=== PATIENT | male | born 1975 | race Caucasian/White ===

== ENCOUNTER 2017-01-26 17:21 | Emergency (ER) | payer MEDICAID ==
[2017-01-26] MEDS ORDERED: LIDOCAINE VISCOUS 2% 15 ML UDC MM STA (17:39)
[2017-01-26] MEDS ORDERED: MAG HYDROX/AL HYDROX/SIMETH 30 ML UDC PO STA (17:39)
--- NOTE | 2017-01-26 17:40 | ED Physician Documentation ---
History of Present Illness - Stated complaint Stated Complaint: ASOPHAGUS PRESSURE - Chief complaint Chief Complaint: Heent - History obtained from History obtained from: Patient - History of Present Illness Timing: Yesterday (Gentleman status post gastric bypass has had a sensation of a retained pill in his midesophagus since yesterday. He is taking clindamycin for a leg infection. It is worse when supine he is feeling like he has to burp a lot but he is managing his secretions. The pain has no radiation and he is not short of breath.) Review of Systems Constitutional: denies: Fever, Chills Nose: denies: Rhinorrhea / runny nose, Congestion Cardiac: denies: Pedal edema, Calf pain Respiratory: denies: Dyspnea, Hemoptysis PD PAST MEDICAL HISTORY - Past Medical History Cardiovascular: Hypertension Respiratory: Sleep apnea, CPAP use Neuro: None Endocrine/Autoimmune: Other GI: GERD : None HEENT: None Psych: None Musculoskeletal: None Derm: None - Past Surgical History Past Surgical History: Yes General: Gastric surgery, Other - Present Medications Home Medications: Ambulatory Orders Medication Instructions Recorded Confirmed Propranolol [Inderal] 20 mg PO TID 04/17/13 03/21/16 Losartan [Cozaar] 50 mg PO BID 09/07/13 03/21/16 Allopurinol [Zyloprim] 100 mg PO BID 04/15/14 03/21/16 Aspirin 81 mg PO DAILY 03/21/16 03/21/16 Cephalexin [Keflex] 500 mg PO QID #28 capsule 03/21/16 Doxycycline Hyclate 100 mg PO BID #14 tablet 03/21/16 Calcium Carbonate/Vitamin D3 1 each PO 03/24/16 [Calcium 500 + Vit D Caplet] Clindamycin HCl 300 mg PO Q6HR 10 Days 03/24/16 Cyanocobalamin (Vitamin B-12) 1,000 mcg PO 03/24/16 [Vitamin B-12] Multivitamin [Multivitamins] 1 each PO 03/24/16 Potassium Chloride 10 meq PO 03/24/16 - Allergies Allergies/Adverse Reactions: Allergies Allergy/AdvReac Type Severity Reaction Status Date / Time Sulfa (Sulfonamide Allergy Unknown unknown Verified 03/24/16 20:41 Antibiotics) - Social History Does the pt smoke?: No Smoking Status: Never smoker Does the pt drink ETOH?: No Does the pt have substance abuse?: No - Immunizations Immunizations are current?: No Immunizations: TDAP >10years/unknown - POLST Patient has POLST: No PD ED PE NORMAL - Vitals Vital signs reviewed: Yes - General General: Alert and oriented X 3, No acute distress - HEENT HEENT: Pharynx benign - Cardiac Cardiac: RRR, No murmur - Respiratory Respiratory: No respiratory distress, Clear bilaterally - Abdomen Abdomen: Non tender - Extremities Extremities: No edema, No calf tenderness / cord - Neuro Neuro: Alert and oriented X 3, Normal speech - Psych Psych: Normal mood, Normal affect Results - Vitals Vitals: Vital Signs - 24 hr 01/26/17 01/26/17 17:26 18:14 Temperature 36.5 C 36.4 C L Heart Rate 90 63 Respiratory 18 15 Rate Blood Pressure 153/107 H 133/82 H O2 Saturation 98 100 Oxygen O2 Source Room air - EKG (time done) 1750 Rate: Rate (enter#) (71) Rhythm: NSR [place]: Normal Intervals: Normal MS QRS: Low voltage Ischemia: Normal ST segments Computer interpretation: Agree with computer - Labs Labs: Laboratory Tests 01/26/17 01/26/17 01/26/17 17:50 17:50 17:50 WBC 4.7 L RBC 4.33 L Hgb 12.6 L Hct 38.0 L MCV 87.7 MCH 29.1 MCHC 33.2 RDW 14.0 Plt Count 108 L MPV 9.0 Manual Slide Review Indicated Sodium 139 Potassium 4.1 Chloride 105 Carbon Dioxide 27 Anion Gap 7.0 BUN 12 Creatinine 0.7 Estimated GFR (MDRD) 123 Glucose 93 Calcium 8.6 Total Bilirubin 1.1 H AST 36 ALT 39 Alkaline Phosphatase 81 Troponin I < 0.04 Total Protein 7.0 Albumin 3.7 Globulin 3.3 Albumin/Globulin Ratio 1.1 Lipase 18 L - Rads (name of study) 2v chest Radiology: EMP read contemporaneously (Infintesimal right pleural effusion) PD MEDICAL DECISION MAKING - ED course ED course: He has probably esophageal trauma from a pill, however there is no evidence of significant illness/Boerhaave syndrome. He is swallowing and keeping things down just fine. Advised watchful waiting for a few days and then if it isn't better touching base with his bariatric clinic for consideration for upper endoscopy and to return if worse. Departure - Departure Disposition: 01 Home, Self Care Clinical Impression: Pill esophagitis Condition: Good Record reviewed to determine appropriate education?: Yes Instructions: Esophagitis Comments: Soft diet for a few days. Return if worse. If not better in the next couple of days touch base with the geriatric clinic at the [facility] for consideration of upper endoscopy. Your blood pressure was elevated today on check in to the emergency department. This does not mean that you have hypertension, it is a common phenomenon to check into the emergency department and have elevated blood pressure. I recommend that you see your primary care physician within the week to have it rechecked when you're feeling better.
[2017-01-26] MEDS ORDERED: MAG HYDROX/AL HYDROX/SIMETH 30 ML UDC ONE (17:50)
[2017-01-26] MEDS ORDERED: LIDOCAINE VISCOUS 2% 15 ML UDC MM ONE (17:50)
[2017-01-26 18:07] LABS: BASOPHILS % (AUTO) 0.8 %; EOSINOPHILS # (AUTO) 0.1 10^3/uL (0.0-0.7); HGB - HEMOGLOBIN 12.6 g/dL (14.0-18.0); LYMPHOCYTES # (AUTO) 2.2 10^3/uL (1.5-3.5); LYMPHOCYTES % (AUTO) 46.2 %; MEAN CORPUSCULAR HEMOGLOBIN 29.1 pg (27.0-31.0); MEAN CORPUSCULAR HGB CONC 33.2 g/dL (32.0-36.0); MEAN CORPUSCULAR VOLUME 87.7 fL (80.0-94.0); MONOCYTES # (AUTO) 0.3 10^3/uL (0.0-1.0); MONOCYTES % (AUTO) 7.3 %; NEUTROPHILS # (AUTO) 2.1 10^3/uL (1.5-6.6); NEUTROPHILS % (AUTO) 43.7 %; NUCLEATED RED BLOOD CELLS AUTO 0.1 /100WBC; RED BLOOD COUNT 4.33 10^6/uL (4.70-6.10); UNCORRECTED WHITE BLOOD COUNT 4.7 x10^3/uL; WHITE BLOOD COUNT 4.7 x10^3/uL (4.8-10.8)
[2017-01-26 18:14] VITALS: BP 133/82
--- NOTE | 2017-01-26 18:14 | XRAY Preliminary Report ---
Exam: XR Chest 2 View PA/LAT IMPRESSION: New very small pleural effusions. Otherwise unchanged. [facility] SITE ID: [id number]
--- NOTE | 2017-01-26 18:17 | XRAY Report ---
EXAM: CHEST RADIOGRAPHY EXAM DATE: 01/26/2017 06:01 PM. CLINICAL HISTORY: Chest pain. COMPARISON: None. TECHNIQUE: 2 views. FINDINGS: Lungs/Pleura: New mild blunting of the posterior costophrenic angles. No consolidative process. Kasia l lung volumes. No pneumothorax. Mediastinum: Heart and mediastinal contours are unremarkable. Other: None. IMPRESSION: New very small pleural effusions. Otherwise unchanged. [facility] Referring Provider Line: [phone] SITE ID: [id number]
[2017-01-26 18:20] LABS: ALBUMIN/GLOBULIN RATIO 1.1 (1.0-2.2); BILIRUBIN,TOTAL 1.1 mg/dL (0.2-1.0); CALCIUM 8.6 mg/dL (8.5-10.3); CREATININE 0.7 mg/dL (0.6-1.2); POTASSIUM 4.1 mmol/L (3.5-5.0)
[2017-01-26 18:51] LABS: PLATELET ESTIMATE, MANUAL DECREASED (<130,000) (NORMAL); PLATELET MORPHOLOGY NORMAL APPEARANCE (NORMAL)
[2017-01-26 18:52] LABS: WBC MORPHOLOGY (MULTIPLE) VARIANT LYMPHS 2+ (NORMAL)
== END 2017-01-26 18:43 | disposition home or self-care (01) ==
LOC: ED 17:21
DX: K20.8 Other esophagitis (principal); Z98.84 Bariatric surgery status; I10 Essential (primary) hypertension; G47.30 Sleep apnea, unspecified; K21.9 Gastro-esophageal reflux disease without esophagitis; Z79.82 Long term (current) use of aspirin
CPT/HCPCS: 36415; 71020; 80053; 83690; 84484; 85025; 93005; 93010; 99283; A9270

== ENCOUNTER 2017-02-02 15:03 | Emergency (ER) | payer MEDICAID ==
--- NOTE | 2017-02-02 18:22 | Ultrasound Preliminary Report ---
Exam: US Duplex Ext Veins Right IMPRESSION: No evidence for deep venous thrombosis. [facility] SITE ID: [id number]
--- NOTE | 2017-02-02 18:24 | Ultrasound Report ---
EXAM: RIGHT LOWER EXTREMITY VENOUS ULTRASOUND EXAM DATE: 02/02/2017 05:38 PM. CLINICAL HISTORY: Pain and swelling and erythema posterior calf. COMPARISON: None. TECHNIQUE: Real-time sonographic vascular imaging was performed by the airline security representative through the lower extremity utilizing both color-flow and Doppler spectral analysis. Multiple delivery representative static basia ges were saved for review. FINDINGS: Common Femoral Vein (CFV): Normal. CFV-GSV Junction: Normal. Profunda Femoral Vein (PFV): Normal. Femoral Vein (FV) Prox: Normal. Femoral Vein (FV) Mid: Normal. Femoral Vein (FV) Dist: Normal. Popliteal Vein: Normal. Posterior Tibial Veins: Limited visualization. Peroneal Veins: Nonvisualized. Other: Extensive subcutaneous edema in the calf. IMPRESSION: No evidence for deep venous thrombosis. [facility] Referring Provider Line: [phone] SITE ID: [id number]
[2017-02-02] MEDS ORDERED: ceFAZolin 1 GM VIAL IM STA (19:01)
--- NOTE | 2017-02-02 19:03 | ED Physician Documentation ---
History of Present Illness - Stated complaint Stated Complaint: RT LEG SWELLING/REDNESS - Chief complaint Chief Complaint: Wound - Additonal information Additional information: hx from pt very nice 41 male with lymphedema prior cellulitis and MRSA txed with clinda recent inc redness and swelling posterior R calf, has been on clinda for 10 d and not better no fever no streaking Review of Systems Constitutional: denies: Fever Cardiac: denies: Chest pain / pressure Respiratory: denies: Dyspnea Skin: reports: Rash Musculoskeletal: reports: Extremity pain, Extremity swelling PD PAST MEDICAL HISTORY - Past Medical History Past Medical History: Yes Cardiovascular: Hypertension Respiratory: Sleep apnea, CPAP use Neuro: None Endocrine/Autoimmune: Other GI: GERD : None HEENT: None Psych: None Musculoskeletal: None Derm: None - Past Surgical History Past Surgical History: Yes General: Gastric surgery, Other - Present Medications Home Medications: Ambulatory Orders Medication Instructions Recorded Confirmed Propranolol [Inderal] 20 mg PO BID 04/17/13 02/02/17 Losartan [Cozaar] 50 mg PO DAILY 09/07/13 02/02/17 Allopurinol [Zyloprim] 100 mg PO BID 04/15/14 02/02/17 Aspirin 81 mg PO DAILY 03/21/16 02/02/17 Calcium Carbonate/Vitamin D3 1 each PO DAILY 03/24/16 [Calcium 500 + Vit D Caplet] Clindamycin HCl 300 mg PO Q6HR 10 Days 03/24/16 02/02/17 Cyanocobalamin (Vitamin B-12) 1,500 mcg PO DAILY 03/24/16 02/02/17 [Vitamin B-12] Multivitamin [Multivitamins] 1 each PO DAILY 03/24/16 02/02/17 Potassium Chloride 10 meq PO DAILY 03/24/16 02/02/17 Cephalexin [Keflex] 500 mg PO Q6H #40 capsule 02/02/17 Venlafaxine [Effexor] 1 tab BID 02/02/17 02/02/17 - Allergies Allergies/Adverse Reactions: Allergies Allergy/AdvReac Type Severity Reaction Status Date / Time Sulfa (Sulfonamide Allergy Unknown unknown Verified 03/24/16 20:41 Antibiotics) - Social History Does the pt smoke?: No Smoking Status: Never smoker Does the pt drink ETOH?: No Does the pt have substance abuse?: No - Immunizations Immunizations are current?: No Immunizations: TDAP >10years/unknown - POLST Patient has POLST: No PD ED PE NORMAL - Vitals Vital signs reviewed: Yes - Cardiac Cardiac: RRR - Respiratory Respiratory: No respiratory distress, Clear bilaterally - Extremities Extremities: Other (RLE tenderness erythema inducartion to posterior R calf, no abscess no streaking, MSV intact) Results - Vitals Vitals: Vital Signs - 24 hr 02/02/17 02/02/17 15:06 18:27 Temperature 36.2 C L 36.6 C Heart Rate 70 69 Respiratory 18 18 Rate Blood Pressure 119/76 133/88 H O2 Saturation 100 100 Oxygen O2 Source Room air - Rads (name of study) doppler Radiology: See rad report (neg) Departure - Departure Disposition: 01 Home, Self Care Clinical Impression: Cellulitis Qualifiers: Site of cellulitis: extremity Site of cellulitis of extremity: lower extremity Laterality: right Qualified Code(s): L03.115 - Cellulitis of right lower limb Condition: Good Instructions: ED Infec Skin Cellulitis Follow-Up: Anisha Vega ARNP [Primary Care Provider] - Prescriptions: Cephalexin [Keflex] 500 mg PO Q6H #40 capsule Comments: The ultrasound was fine - no abscess and no blood clot Since the clindamycin is not working, I think it is reasonable to try another oral antibiotic. If you are not improving in the next 48 hr on the oral antibiotics, come back to the ER to see if you need to be admitted for IV antibiotics And also please have your PMD recheck your blood pressure - it was high today
[2017-02-02] MEDS ORDERED: ceFAZolin 1 GM VIAL ONE (19:14)
[2017-02-02] MEDS ORDERED: WATER FOR INJECTION,STERILE 10 ML ONE (19:15)
[2017-02-02 20:03] VITALS: BP 121/85
== END 2017-02-02 20:00 | disposition home or self-care (01) ==
LOC: ED 15:03
DX: L03.115 Cellulitis of right lower limb (principal); Z86.14 Personal history of Methicillin resistant Staphylococcus aureus infection; I10 Essential (primary) hypertension; Z79.82 Long term (current) use of aspirin
CPT/HCPCS: 96372; 99283

== ENCOUNTER 2017-02-07 00:52 | Emergency (ER) | payer MEDICAID ==
[2017-02-07] MEDS ORDERED: diphenhydrAMINE 25 MG CAPSULE PO STA (01:02)
[2017-02-07] MEDS ORDERED: SULFAMETH/TRIMETH DS 800/160 MG TABLET PO STA (01:02)
[2017-02-07] MEDS ORDERED: SULFAMETH/TRIMETH DS 800/160 MG TABLET PO ONE (01:13)
[2017-02-07] MEDS ORDERED: diphenhydrAMINE 25 MG CAPSULE PO ONE (01:13)
[2017-02-07 01:37] LABS: BASOPHILS % (AUTO) 0.5 %; EOSINOPHILS # (AUTO) 0.2 10^3/uL (0.0-0.7); EOSINOPHILS % (AUTO) 3.4 %; HCT - HEMATOCRIT 31.3 % (42.0-52.0); HGB - HEMOGLOBIN 10.8 g/dL (14.0-18.0); LYMPHOCYTES % (AUTO) 52.3 %; MEAN CORPUSCULAR HEMOGLOBIN 29.7 pg (27.0-31.0); MEAN CORPUSCULAR HGB CONC 34.4 g/dL (32.0-36.0); MEAN CORPUSCULAR VOLUME 86.4 fL (80.0-94.0); MEAN PLATELET VOLUME 8.7 fL (7.4-11.4); MONOCYTES # (AUTO) 0.4 10^3/uL (0.0-1.0); MONOCYTES % (AUTO) 7.7 %; NEUTROPHILS % (AUTO) 36.1 %; NUCLEATED RED BLOOD CELLS AUTO 0.1 /100WBC; RED BLOOD COUNT 3.63 10^6/uL (4.70-6.10); RED CELL DISTRIBUTION WIDTH 14.3 % (12.0-15.0); UNCORRECTED WHITE BLOOD COUNT 5.7 x10^3/uL; WHITE BLOOD COUNT 5.7 x10^3/uL (4.8-10.8)
[2017-02-07 01:39] LABS: BILIRUBIN,TOTAL 0.8 mg/dL (0.2-1.0); CALCIUM 8.2 mg/dL (8.5-10.3); CREATININE 0.8 mg/dL (0.6-1.2); TOTAL PROTEIN 6.9 g/dL (6.7-8.2)
--- NOTE | 2017-02-07 01:59 | ED Physician Documentation ---
PD HPI SKIN - Stated complaint Stated Complaint: RT LEG INFECTION - Chief complaint Chief Complaint: Ext Problem - History obtained from History obtained from: Patient, Family - History of Present Illness Timing - onset: Chronic Timing - details: Gradual onset, Still present Location: RLE Quality / character: Painful, Discolored Associated symptoms: No: Fever, Myalgias Similar symptoms before: Work up / diagnostics, Treatment, Follow up Recently seen: Emergency Dept - Additional information Additional information: Patient is a 41 year old male with a history of lymphedema who is presenting to the emergency department for cellulitis. Patient states that it has been going on for a while. he was treated with a course of clindamycin, and then most recently a course of keflex, but his symptoms had not really improved so he came for re-evaluation. Review of Systems Constitutional: denies: Fever, Chills Eyes: denies: Loss of vision, Decreased vision Ears: denies: Ear pain, Drainage/discharge Nose: denies: Rhinorrhea / runny nose, Congestion Throat: denies: Sore throat Cardiac: denies: Chest pain / pressure GI: denies: Nausea, Vomiting Skin: reports: Rash Musculoskeletal: reports: Extremity pain, Extremity swelling. denies: Neck pain , Back pain Neurologic: denies: Generalized weakness, Focal weakness, Numbness, Difficulty speaking Psychiatric: denies: Depressed Immunocompromised: denies: Immunocompromised PD PAST MEDICAL HISTORY - Past Medical History Cardiovascular: Hypertension Respiratory: Sleep apnea, CPAP use Neuro: None Endocrine/Autoimmune: Other GI: GERD : None HEENT: None Psych: None Musculoskeletal: None Derm: None - Past Surgical History Past Surgical History: Yes General: Gastric surgery, Other - Present Medications Home Medications: Ambulatory Orders Medication Instructions Recorded Confirmed Propranolol [Inderal] 20 mg PO BID 04/17/13 02/07/17 Losartan [Cozaar] 50 mg PO DAILY 09/07/13 02/07/17 Allopurinol [Zyloprim] 100 mg PO BID 04/15/14 02/07/17 Aspirin 81 mg PO DAILY 03/21/16 02/07/17 Calcium Carbonate/Vitamin D3 1 each PO DAILY 03/24/16 02/07/17 [Calcium 500 + Vit D Caplet] Cyanocobalamin (Vitamin B-12) 1,500 mcg PO DAILY 03/24/16 02/07/17 [Vitamin B-12] Multivitamin [Multivitamins] 1 each PO DAILY 03/24/16 02/07/17 Potassium Chloride 10 meq PO DAILY 03/24/16 02/07/17 Cephalexin [Keflex] 500 mg PO Q6H #40 capsule 02/02/17 02/07/17 Venlafaxine [Effexor] 1 tab BID 02/02/17 02/07/17 Sulfamethox/Trimeth 800/160 1 each PO BID #20 tablet 02/07/17 [Bactrim Ds 800/160] - Allergies Allergies/Adverse Reactions: Allergies Allergy/AdvReac Type Severity Reaction Status Date / Time Sulfa (Sulfonamide Allergy Unknown unknown Verified 03/24/16 20:41 Antibiotics) - Social History Does the pt smoke?: No Smoking Status: Never smoker Does the pt drink ETOH?: No Does the pt have substance abuse?: No - Immunizations Immunizations are current?: No Immunizations: TDAP >10years/unknown - POLST Patient has POLST: No PD ED PE NORMAL - Vitals Vital signs reviewed: Yes - General General: Alert and oriented X 3, No acute distress - HEENT HEENT: Atraumatic, PERRL - Neck Neck: Supple, no meningeal sign - Cardiac Cardiac: RRR, No murmur - Respiratory Respiratory: No respiratory distress, Clear bilaterally - Abdomen Abdomen: Soft - Neuro Neuro: Alert and oriented X 3, No motor deficit, No sensory deficit, Normal speech - Psych Psych: Normal mood, Normal affect PD ED PE EXPANDED - Extremities Extremities: Right ankle (redness and warmth of right distal lower extremity near the ankle), Pedal edema bilateral Results - Vitals Vitals: Vital Signs - 24 hr 02/07/17 02/07/17 01:00 02:18 Temperature 37.2 C Heart Rate 68 63 Respiratory 16 16 Rate Blood Pressure 149/85 H 136/80 H O2 Saturation 100 99 Oxygen O2 Source Room air - Labs Labs: Laboratory Tests 02/07/17 02/07/17 02/07/17 01:15 01:15 01:15 WBC 5.7 RBC 3.63 L Hgb 10.8 L Hct 31.3 L MCV 86.4 MCH 29.7 MCHC 34.4 RDW 14.3 Plt Count 135 MPV 8.7 Neut # 2.0 Lymph # 3.0 [place] # 0.4 Eos # 0.2 Baso # 0.0 Absolute Nucleated RBC 0.01 Nucleated RBCs 0.1 ESR 34 H Sodium 136 Potassium 4.0 Chloride 104 Carbon Dioxide 27 Anion Gap 5.0 L BUN 14 Creatinine 0.8 Estimated GFR (MDRD) 106 Glucose 102 H Calcium 8.2 L Total Bilirubin 0.8 AST 27 ALT 30 Alkaline Phosphatase 77 C-Reactive Protein 3.6 H Total Protein 6.9 Albumin 3.5 Globulin 3.4 Albumin/Globulin Ratio 1.0 Lipase 25 PD MEDICAL DECISION MAKING - ED course Complexity details: reviewed old records, reviewed results, re-evaluated patient , considered differential, d/w patient, d/w family ED course: Patient was seen and examined at bedside. patient's vital signs were within normal limits. labs were drawn, since the infection had been so persistent. Patient was treated with bactrim since he stated that his allergy was unknown as a child. Patient's tolerated the treatment well within any side effects. Patient required no further work up and was appropriate for trial of outpatient therapy. Departure - Departure Disposition: 01 Home, Self Care Clinical Impression: Cellulitis of leg Condition: Good Instructions: Cellulitis Dc Follow-Up: Anisha Vega ARNP [Primary Care Provider] - Within 3 Days Prescriptions: Sulfamethox/Trimeth 800/160 [Bactrim Ds 800/160] 1 each PO BID #20 tablet Comments: Your symptoms today are likely secondary to skin infection. we will try a course of bactrim since it has mrsa coverage. You should follow up with your pmd for re-evaluation within the next week. You can return to the emergency department at any time for new, worsening or uncontrollable symptoms. Discharge Date/Time: 02/07/17 02:19
[2017-02-07 02:19] VITALS: BP 136/80
== END 2017-02-07 02:19 | disposition home or self-care (01) ==
LOC: ED 00:52
DX: L03.115 Cellulitis of right lower limb (principal); I10 Essential (primary) hypertension; Z79.82 Long term (current) use of aspirin
CPT/HCPCS: 36415; 80053; 83690; 85025; 85651; 86140; 99283; A9270

== ENCOUNTER 2017-05-10 15:00 | Outpatient (CLI) | payer MEDICAID ==
--- NOTE | 2017-05-11 10:10 | Ultrasound Report ---
ULTRASOUND RIGHT GROIN: 05/10/2017 CLINICAL INDICATION: Suprapubic mass. TECHNIQUE: Real-time scanning was performed with sales representative church furniture static images obtained. FINDINGS: Ultrasound of the palpable abnormality identified by the patient was performed. No discre te solid or cystic mass is seen. Unremarkable subcutaneous fat is noted. IMPRESSION: NO EVIDENCE OF SONOGRAPHIC CORRELATE TO THE PALPABLE ABNORMALITY. JOB #: [id number] EXT JOB #:[id number]
== END 2017-05-10 15:01 | disposition home or self-care (01) ==
LOC: DI 15:00
PROVIDERS: ATTEND Surgery
DX: R19.09 Other intra-abdominal and pelvic swelling, mass and lump (principal)
CPT/HCPCS: 76882

== ENCOUNTER 2018-04-07 18:23 | Emergency (ER) | payer MEDICAID ==
[2018-04-07] MEDS ORDERED: SODIUM CHLORIDE 0.9% 1,000 ML IV ONE (20:16)
[2018-04-07] MEDS ORDERED: KETOROLAC 60 MG/2 ML VIAL IVP STA (20:16)
[2018-04-07 20:38] LABS: BASOPHILS % (AUTO) 0.5 %; EOSINOPHILS # (AUTO) 0.1 10^3/uL (0.0-0.7); EOSINOPHILS % (AUTO) 2.5 %; HGB - HEMOGLOBIN 14.2 g/dL (14.0-18.0); LYMPHOCYTES # (AUTO) 2.4 10^3/uL (1.5-3.5); LYMPHOCYTES % (AUTO) 39.5 %; MEAN CORPUSCULAR HEMOGLOBIN 30.5 pg (27.0-31.0); MEAN CORPUSCULAR HGB CONC 34.7 g/dL (32.0-36.0); MEAN CORPUSCULAR VOLUME 87.9 fL (80.0-94.0); MEAN PLATELET VOLUME 8.2 fL (7.4-11.4); MONOCYTES # (AUTO) 0.3 10^3/uL (0.0-1.0); MONOCYTES % (AUTO) 5.5 %; NEUTROPHILS # (AUTO) 3.2 10^3/uL (1.5-6.6); PLT - PLATELET COUNT 137 10^3/uL (130-450); RED BLOOD COUNT 4.65 10^6/uL (4.70-6.10); RED CELL DISTRIBUTION WIDTH 13.8 % (12.0-15.0); WHITE BLOOD COUNT 6.1 x10^3/uL (4.8-10.8)
[2018-04-07 20:55] LABS: ALBUMIN 3.7 g/dL (3.2-5.5); ALBUMIN/GLOBULIN RATIO 1.1 (1.0-2.2); BILIRUBIN,TOTAL 1.1 mg/dL (0.2-1.0); CALCIUM 8.7 mg/dL (8.5-10.3); CREATININE 0.7 mg/dL (0.6-1.2)
[2018-04-07] MEDS ORDERED: IOPAMIDOL-300 100 ML VIAL ONE (21:06)
[2018-04-07] MEDS ORDERED: IOPAMIDOL-300 100 ML VIAL IVP ONE (21:33)
--- NOTE | 2018-04-07 22:08 | ED Physician Documentation ---
History of Present Illness - Stated complaint Stated Complaint: MALE - Chief complaint Chief Complaint: General - History obtained from History obtained from: Patient - Additonal information Additional information: 42-year-old male presents the emergency department with periumbilical pain which started this morning. The patient denies any specific triggering factors. The patient is status post a Marce-en-Y gastric bypass 2 years ago and had a repair of a umbilical hernia at that time. Today, the patient noticed a bulging around his umbilicus which was associated with a sharp stabbing pain. Presently, the bulging has resolved but the patient has ongoing pain in his abdomen. The patient reports feeling nauseous but denies vomiting or diarrhea. No radiation of the pain. No triggering factors. No relieving factors. Symptoms are described as moderate Review of Systems Constitutional: denies: Fever, Chills Eyes: denies: Discharge Ears: denies: Ear pain Nose: denies: Congestion Throat: denies: Sore throat Cardiac: denies: Chest pain / pressure Respiratory: denies: Dyspnea GI: reports: Abdominal Pain, Nausea. denies: Vomiting, Diarrhea : denies: Dysuria, Hematuria Skin: denies: Laceration (s) Musculoskeletal: denies: Back pain Neurologic: denies: Head injury Immunocompromised: denies: Chemotherapy PD PAST MEDICAL HISTORY - Past Medical History Cardiovascular: Hypertension Respiratory: Sleep apnea, CPAP use Endocrine/Autoimmune: Other GI: GERD : None HEENT: None Psych: None Musculoskeletal: None Derm: None - Past Surgical History Past Surgical History: Yes General: Gastric surgery, Other - Present Medications Home Medications: Ambulatory Orders Medication Instructions Recorded Confirmed Propranolol [Inderal] 20 mg PO BID 04/17/13 02/07/17 Losartan [Cozaar] 50 mg PO DAILY 09/07/13 02/07/17 Allopurinol [Zyloprim] 100 mg PO BID 04/15/14 02/07/17 Aspirin 81 mg PO DAILY 03/21/16 02/07/17 Calcium Carbonate/Vitamin D3 1 each PO DAILY 03/24/16 02/07/17 [Calcium 500 + Vit D Caplet] Cyanocobalamin (Vitamin B-12) 1,500 mcg PO DAILY 03/24/16 02/07/17 [Vitamin B-12] Multivitamin [Multivitamins] 1 each PO DAILY 03/24/16 02/07/17 Potassium Chloride 10 meq PO DAILY 03/24/16 02/07/17 Cephalexin [Keflex] 500 mg PO Q6H #40 capsule 02/02/17 02/07/17 Venlafaxine [Effexor] 1 tab BID 02/02/17 02/07/17 Sulfamethox/Trimeth 800/160 1 each PO BID #20 tablet 02/07/17 [Bactrim Ds 800/160] - Allergies Allergies/Adverse Reactions: Allergies Allergy/AdvReac Type Severity Reaction Status Date / Time Sulfa (Sulfonamide Allergy Unknown unknown Verified 04/07/18 18:30 Antibiotics) - Social History Does the pt smoke?: No Smoking Status: Never smoker Does the pt drink ETOH?: No Does the pt have substance abuse?: No - Immunizations Immunizations are current?: No Immunizations: TDAP >10years/unknown - POLST Patient has POLST: No PD ED PE NORMAL - General General: Alert and oriented X 3, No acute distress, Well developed/nourished - HEENT HEENT: Atraumatic, PERRL, EOMI, Ears normal - Cardiac Cardiac: RRR, Strong equal pulses - Respiratory Respiratory: No respiratory distress, Clear bilaterally - Abdomen Abdomen: Soft, Non distended, Other (The patient has tenderness in the mid abdomen, there is no rebound or peritoneal signs. On examination I cannot appreciate an incarcerated hernia or hernia) - Derm Derm: Normal color - Extremities Extremities: No deformity - Neuro Neuro: Alert and oriented X 3, Normal speech - Psych Psych: Normal mood Results - Vitals Vitals: Vital Signs - 24 hr 04/07/18 04/07/18 04/07/18 18:27 20:42 22:27 Temperature 36.4 C L 36.6 C Heart Rate 62 62 62 Respiratory 16 16 16 Rate Blood Pressure 141/87 H 150/97 H 150/89 H O2 Saturation 100 100 99 Oxygen O2 Source Room air - Labs Labs: Laboratory Tests 04/07/18 04/07/18 20:33 20:33 WBC 6.1 RBC 4.65 L Hgb 14.2 Hct 40.9 L MCV 87.9 MCH 30.5 MCHC 34.7 RDW 13.8 Plt Count 137 MPV 8.2 Neut # (Auto) 3.2 Lymph # (Auto) 2.4 [place] # (Auto) 0.3 Eos # (Auto) 0.1 Baso # (Auto) 0.0 Absolute Nucleated RBC 0.00 Nucleated RBC % 0.1 Sodium 138 Potassium 3.9 Chloride 104 Carbon Dioxide 28 Anion Gap 6.0 BUN 12 Creatinine 0.7 Estimated GFR (MDRD) 123 Glucose 130 H Calcium 8.7 Total Bilirubin 1.1 H AST 22 ALT 22 Alkaline Phosphatase 54 Total Protein 7.0 Albumin 3.7 Globulin 3.3 Albumin/Globulin Ratio 1.1 Lipase 31 - Rads (name of study) CT abdomen pelvis Radiology: Final report received (IMPRESSION: 1. Likely mild inflammation of a fat-containing supraumbilical hernia with a wide neck. No bowel containing hernia.2. Moderate splenomegaly with mild hepatomegaly versus normal variant Can's lobe, of uncertain etiology and clinical significance.3. Postsurgical changes of the gastroesophageal junction with small to ) PD MEDICAL DECISION MAKING - ED course ED course: On reevaluation the patient resting comfortably and his symptoms have completely resolved. On physical exam there is no evidence of an incarcerated hernia. The CT scan does show evidence of a fat-containing hernia. I discussed with the patient the findings on the CT scan including the incidental findings. I advised follow-up with surgery as an outpatient for further management of the hernia. The patient will follow up with primary care for the incidental findings. The patient appears appropriate for ongoing outpatient management. I discussed warning signs and recommended returning to the emergency department immediately for any worsening or any concerns. - Sepsis Event Vital Signs: Vital Signs - 24 hr 04/07/18 04/07/18 04/07/18 18:27 20:42 22:27 Temperature 36.4 C L 36.6 C Heart Rate 62 62 62 Respiratory 16 16 16 Rate Blood Pressure 141/87 H 150/97 H 150/89 H O2 Saturation 100 100 99 Oxygen O2 Source Room air Departure - Departure Disposition: 01 Home, Self Care Clinical Impression: Acute abdominal pain, Hernia of abdominal wall, Hiatal hernia, Enlarged liver, Enlargement, spleen Condition: Good Instructions: Hernia, Hiatal Hernia Follow-Up: Jac Rodriges MD [Provider Admit Priv/Credential] - (Call to schedule a follow up appointment) Anisha Vega ARNP [Primary Care Provider] - Within 1 week Comments: Please return to the ER for worsening symptoms or any concerns
--- NOTE | 2018-04-07 22:20 | CT Report ---
Procedure Date: 04/07/2018 Accession Number: [id number] / [id number] Procedure: CT - Abdomen/Pelvis W/ CPT Code: FULL RESULT: EXAM: CT ABDOMEN AND PELVIS EXAM DATE: 04/07/2018 09:41 PM. CLINICAL HISTORY: Midabdominal pain. COMPARISONS: Chest radiograph 12/17/2007 and 01/26/2017. TECHNIQUE: Routine helical CT imaging was performed through the abdomen and pelvis. IV contrast: ISOVUE 300 100mL. Enteric contrast: No. Reconstructions: Coronal and sagittal. In accordance with CT protocol optimization, one or more of the following dose reduction techniques were utilized for this exam: automated exposure control, adjustment of mA and/or KV based on patient size, or use of iterative reconstructive technique. FINDINGS: Lung Bases: Small to moderate hiatal hernia with postsurgical changes at the gastroesophageal junction. Liver: Elongated right hepatic lobe with foreshortened left hepatic lobe, possibly normal variant Can's lobe. No suspicious focal lesion. Gallbladder/Bile Ducts: Unremarkable. Spleen: Enlarged measuring 18.8 cm in craniocaudal dimension. No focal lesion. Pancreas: Normal. Adrenal Glands: Normal. Kidneys: No hydronephrosis or mass. Nonobstructing right upper pole calculus measures 8 mm. Nonobstructing left lower pole calculus measures 3 mm. Peritoneal Cavity/Bowel: No free fluid or free air. No evidence of bowel obstruction or inflammation. Postsurgical changes at the gastroesophageal junction with small to moderate hiatal hernia as above. Small bowel anastomosis in the midabdomen. Appendix is normal. Stool burden within normal limits. No abnormally enlarged lymph nodes. Pelvic Organs: Urinary bladder is near completely decompressed but unremarkable. Prostate and seminal vesicles are within normal limits. Vasculature: No abdominal aortic aneurysm. No appreciable calcific atherosclerosis. Portal vein is patent. Bones: No significant abnormality. Other: Fat-containing right supraumbilical hernia. Neck measures 25 mm transversely (3/52). Mild wall thickening of the included fats which measures 63 x 35 mm transversely (3/54). No bowel containing hernia. IMPRESSION: 1. Likely mild inflammation of a fat-containing supraumbilical hernia with a wide neck. No bowel containing hernia. 2. Moderate splenomegaly with mild hepatomegaly versus normal variant Can's lobe, of uncertain etiology and clinical significance. 3. Postsurgical changes of the gastroesophageal junction with small to moderate hiatal hernia. 4. Bilateral nonobstructing nephrolithiasis. RADIA
[2018-04-07 22:28] VITALS: BP 150/89
== END 2018-04-07 22:33 | disposition home or self-care (01) ==
LOC: ED 18:23
DX: K43.9 Ventral hernia without obstruction or gangrene (principal); K44.9 Diaphragmatic hernia without obstruction or gangrene; R16.0 Hepatomegaly, not elsewhere classified; R16.1 Splenomegaly, not elsewhere classified; I10 Essential (primary) hypertension; Z79.82 Long term (current) use of aspirin
CPT/HCPCS: 36415; 74177; 80053; 83690; 85025; 96361; 96374; 99283; 99284; Q9967

== ENCOUNTER 2018-05-13 12:17 | Outpatient (CLI) | payer MEDICAID ==
[2018-05-13 13:04] LABS: BASOPHILS % (AUTO) 0.5 %; EOSINOPHILS # (AUTO) 0.2 10^3/uL (0.0-0.7); EOSINOPHILS % (AUTO) 3.1 %; LYMPHOCYTES # (AUTO) 2.3 10^3/uL (1.5-3.5); MEAN CORPUSCULAR HEMOGLOBIN 30.7 pg (27.0-31.0); MEAN CORPUSCULAR VOLUME 87.7 fL (80.0-94.0); MEAN PLATELET VOLUME 8.2 fL (7.4-11.4); MONOCYTES # (AUTO) 0.4 10^3/uL (0.0-1.0); MONOCYTES % (AUTO) 6.8 %; NEUTROPHILS # (AUTO) 3.1 10^3/uL (1.5-6.6); NEUTROPHILS % (AUTO) 51.6 %; PLT - PLATELET COUNT 131 10^3/uL (130-450); RED BLOOD COUNT 4.56 10^6/uL (4.70-6.10); WHITE BLOOD COUNT 6.1 x10^3/uL (4.8-10.8)
[2018-05-13 13:18] LABS: ALBUMIN/GLOBULIN RATIO 1.4 (1.0-2.2); BILIRUBIN,TOTAL 0.7 mg/dL (0.2-1.0); CALCIUM 8.6 mg/dL (8.5-10.3); CREATININE 0.7 mg/dL (0.6-1.2); TOTAL PROTEIN 6.9 g/dL (6.7-8.2)
--- NOTE | 2018-05-13 13:32 | Ultrasound Report ---
Reason: ENLARGED LIVER Procedure Date: 05/13/2018 Accession Number: [id number] / [id number] Procedure: US - Abdomen Limited CPT Code: FULL RESULT: EXAM: ABDOMEN ULTRASOUND LIMITED, RUQ EXAM DATE: 05/13/2018 12:43 PM. CLINICAL HISTORY: ENLARGED LIVER. COMPARISON: None. TECHNIQUE: Real-time scanning was performed with static images obtained. FINDINGS: Liver: Normal in size and echotexture. Right lobe is 17.9 cm. Main portal vein flow: Hepatopetal. Gallbladder: no stones, wall thickening, or sonographic Munoz's sign. Biliary System: CBD measures 6 mm. No intrahepatic or extrahepatic ductal dilatation. Other: None. IMPRESSION: No acute sonographic abnormalities. No focal hepatic abnormalities. Mild craniocaudad hepatic enlargement, could reflect a Can's lobe. RADIA
[2018-05-13 13:48] LABS: HB2 TOTAL 14.6 g/dL; HEMOGLOBIN A1C 0.41 g/dL; HEMOGLOBIN A1C % 4.7 % (4.6-6.2)
== END 2018-05-13 12:18 | disposition home or self-care (01) ==
LOC: DI 12:17
PROVIDERS: ATTEND Nurse Practitioner Family
DX: R16.0 Hepatomegaly, not elsewhere classified (principal); K42.9 Umbilical hernia without obstruction or gangrene; I10 Essential (primary) hypertension; R73.9 Hyperglycemia, unspecified
CPT/HCPCS: 36415; 76705; 80050; 83036; 87640

== ENCOUNTER 2018-05-23 08:46 | Day surgery (SDC) | payer MEDICAID ==
[2018-05-23] MEDS ORDERED: BUPIVACAINE 0.5% PF 30 ML VIAL ONE (08:55)
[2018-05-23] MEDS ORDERED: ceFAZolin 1 GM VIAL ONE (09:11)
[2018-05-23] MEDS ORDERED: ceFAZolin 2 GM/50 ML 2 GM/50 ML BAG IV ONE (09:11)
[2018-05-23] MEDS ORDERED: LACTATED RINGERS 1,000 ML IV ONE (09:22)
--- NOTE | 2018-05-23 09:23 | ANESTHESIA ---
Pre-Anesthesia VS, & Labs - Diagnosis Supraumbilical incisional hernia - Procedure Supraumbilical incisional hernia repair Vital Signs: Temp Pulse Resp BP Pulse Ox 36.3 C L 66 18 132/85 H 99 05/23/18 09:06 05/23/18 09:06 05/23/18 09:06 05/23/18 09:06 05/23/18 09:06 Vital Signs - 8 hr 05/23/18 09:06 Temperature 36.3 C L Heart Rate 66 Respiratory 18 Rate Blood Pressure 132/85 H O2 Saturation 99 Height 5 ft 6 in Weight (kg) 150.2 kg Body Mass Index 50.4 Height 5 ft 6 in Weight (kg) 150.2 kg Body Mass Index 50.4 - NPO >8 hours - Lab Results Lab results reviewed: Yes Home Medications and Allergies Home Medications: Ambulatory Orders Medication Instructions Recorded Confirmed Propranolol [Inderal] 20 mg PO BID 04/17/13 02/07/17 Losartan [Cozaar] 50 mg PO DAILY 09/07/13 02/07/17 Allopurinol [Zyloprim] 100 mg PO BID 04/15/14 02/07/17 Aspirin 81 mg PO DAILY 03/21/16 02/07/17 Calcium Carbonate/Vitamin D3 1 each PO DAILY 03/24/16 02/07/17 [Calcium 500 + Vit D Caplet] Cyanocobalamin (Vitamin B-12) 1,500 mcg PO DAILY 03/24/16 02/07/17 [Vitamin B-12] Multivitamin [Multivitamins] 1 each PO DAILY 03/24/16 02/07/17 Potassium Chloride 10 meq PO DAILY 03/24/16 02/07/17 Venlafaxine [Effexor] 1 tab BID 02/02/17 02/07/17 Propranolol [Inderal] 20 mg PO BID 04/17/13 Losartan [Cozaar] 50 mg PO DAILY 09/07/13 Allopurinol [Zyloprim] 100 mg PO BID 04/15/14 Aspirin 81 mg PO DAILY 03/21/16 Calcium Carbonate/Vitamin D3 [Calcium 500 + Vit D Caplet] 1 each PO DAILY 03/24/16 Cyanocobalamin (Vitamin B-12) [Vitamin B-12] 1,500 mcg PO DAILY 03/24/16 Multivitamin [Multivitamins] 1 each PO DAILY 03/24/16 Potassium Chloride 10 meq PO DAILY 03/24/16 Venlafaxine [Effexor] 1 tab BID 02/02/17 Allergies/Adverse Reactions: Allergies Allergy/AdvReac Type Severity Reaction Status Date / Time Sulfa (Sulfonamide Allergy Unknown unknown Verified 04/07/18 18:30 Antibiotics) Anes History & Medical History - Anesthetic History Anesthesia Complications: reports: No previous complications Family history of Anesthesia Complications: Denies Family history of Malignant Hyperthermia: Denies - Medical History Cardiovascular: reports: Hypertension Pulmonary: reports: Sleep apnea, CPAP use Gastrointestinal: reports: GERD (Resolved with gastric bypass), Other (Super morbid obesity. BMI>50) Urinary: reports: None, Kidney stones (history of kidney stomes) Neuro: reports: None Musculoskeletal: reports: None Blood Disorders: reports: None Skin: reports: None Smoking Status: Never smoker Psychosocial: reports: Depression, Anxiety - Surgical History General: Gastric surgery (Marce en Y gastric bypass), Other (Umbilical hernia repair) Results - EKG Results EKG Comparison: Reviewed EKG (NSR) - Echo Results Echo Results: Report reviewed (Mild LVH, EF 60%) Exam General: Alert, Oriented x3, Cooperative, No acute distress Dental: Poor dentition Mouth Openin Fingerbreadth Neck Mobility: Normal Mallampati classification: II Thyromental Distance: 4-6 cm Respiratory: Lungs clear, Normal breath sounds, No respiratory distress, No accessory muscle use Cardiovascular: Regular rate, Normal S1, Normal S2, No murmurs Mental/Cognitive Status: Alert/Oriented X3, Normal for patient Cognitive Status: Within normal limits Plan Anesthesia Type: General Consent for Procedure(s) Verified and Reviewed: Yes Code Status: Attempt Resuscitation ASA classification: 3-Severe systemic disease Is this case an emergency?: No
[2018-05-23] MEDS ORDERED: LIDOCAINE-MPF 2% 5 ML VIAL IM ONE (10:00)
[2018-05-23] MEDS ORDERED: MIDAZOLAM 2 MG/2 ML VIAL IVP ONE (10:00)
[2018-05-23] MEDS ORDERED: KETOROLAC 30 MG/ML VIAL IVP ONE (10:00)
[2018-05-23] MEDS ORDERED: DEXAMETHASONE 4 MG/ML VIAL IVP ONE (10:00)
[2018-05-23] MEDS ORDERED: ONDANSETRON 4 MG/2 ML VIAL IVP ONE (10:00)
[2018-05-23] MEDS ORDERED: PROPOFOL 200 MG/20 ML VIAL IVP ONE (10:00)
[2018-05-23] MEDS ORDERED: fentaNYL 100 MCG/2 ML VIAL IVP ONE (10:00)
[2018-05-23] MEDS ORDERED: BUPIVACAINE 0.5% PF 30 ML VIAL INFIL ONE (10:17)
--- NOTE | 2018-05-23 11:38 | OPERATIVE REPORT ---
Operative Report - General Procedure Date: 05/23/18 Planned Procedure: Supraumbilical herniorrhaphy with mesh Pre-Op Diagnosis: Supraumbilical hernia Procedure Performed: Supraumbilical herniorrhaphy with mesh Post Op Diagnosis: Supraumbilical hernia with adherent omentum - Procedure Note Primary Surgeon: Jac Rodriges MD Anesthesia Provider: Dustin Braun CRNA Anesthesia Technique: General LMA, Local (30 mL 1/2% marcaine) IV Fluids (mL): 800 Estimated Blood Loss (mL): 10 Complications: None. - Other Other Information/Narrative: OPERATIVE DESCRIPTION/REPORT: After verbal and written informed consent was obtained detailing the risks of infection, bleeding requiring transfusion with its risks, nerve injury, and , and after I met with the patient confirming the surgery and the site of the surgery, the patient was brought to the operative suite and placed supine on the operating table. Great care was taken to avoid pressure points to prevent pressure necrosis or nerve injury. Monitoring devices were applied along with TEDs and pneumatic compressive stockings (to prevent DVT). The patient received preoperative antibiotics for surgical prophylaxis. Dustin Braun CRNA sedated and anesthetized the patient for the entire procedure. The patient was prepped and draped in the usual sterile manner. With the patient draped my initials were clearly visible. A "time in" then confirmed that the patient was identified with 3 identifiers (name, date and medical record number), the history and physical was in the chart, the signed consent confirming the procedure was in the chart, the patient was in the correct position, the aforementioned prophylactic measures were in place or given, we had the correct personnel and equipment to complete the procedure and that anesthesia, surgery a nd nursing were given an opportunity to express any concerns. With the agreement of everyone in the room, we proceeded with the operation. A transverse incision was made overlying the mass tracing the previous incision and dissection was carried down to the hernia sac using a combination of Metzenbaum scissors, scalpel, and mostly Bovie electrocautery. The sac was cleared of overlying adherent tissue, and the fascial defect was delineated. The fascia was cleared of any adherent tissue for a distance 1.5 cm from the defect. The sac was resected using a combination of Metzenbaum scissors and mostly Bovie electrocautery. The adhesions of the omentum to the sac were taken using Bovie elecctrocautery and the omentum reduced back into the abdomen. The defect was closed using 8 cm in diameter Ventralex ST Hernia Patch (Ref#[id number], Lot#[id number], and use by date 2020-01-31) sewing it in place using interrupted 2-0 and 0 PDS. The subcutaneous tissues were copiously irrigated, and then closed using an interrupted 2-0 Vicryl. Meticulous hemostasis was obtained using Bovie electrocautery. The skin incision was approximated with a running 4-0 Monocryl. At this point a time out was performed that confirmed that all the counts were correct, the procedure that was performed, the blood loss, the IV fluids administered, and the patients condition. Having tolerated the procedure well, the patient was subsequently extubated and taken to recovery room in good and stable condition.
[2018-05-23] MEDS ORDERED: oxyCOD/ACETAMIN 5 MG/325 MG TABLET PO ONE (11:54)
[2018-05-23 12:31] VITALS: BP 134/84
== END 2018-05-23 08:47 | disposition home or self-care (01) ==
LOC: SDS 08:46
PROVIDERS: ATTEND Surgery
PROC: 0WUF0JZ Supplement Abdominal Wall with Synthetic Substitute, Open Approach (ICD-10-PCS; principal; 2018-05-23 09:45)
DX: K43.2 Incisional hernia without obstruction or gangrene (principal); G47.30 Sleep apnea, unspecified; I10 Essential (primary) hypertension; E66.01 Morbid (severe) obesity due to excess calories; Z68.43 Body mass index [BMI] 50.0-59.9, adult
CPT/HCPCS: 49560; 49568; A9270; C1781; J0690; J7120

== ENCOUNTER 2018-09-06 03:28 | Emergency (ER) | payer MEDICAID ==
[2018-09-06 03:37] VITALS: BP 142/96
--- NOTE | 2018-09-06 03:51 | ED Physician Documentation ---
PD HPI HEENT - Stated complaint Stated Complaint: TOOTH ACHE - Chief complaint Chief Complaint: Heent - History obtained from History obtained from: Patient - History of Present Illness Timing - onset: How many months ago (1) Timing - details: Gradual onset, Waxing and waning Pain level now: 7 Location: Tooth Improves: Nothing Associated symptoms: No: Fever Recently seen: Not recently seen - Additional information Additional information: c/o right upper tooth pain, episodic x 1 month but worse and constant x past several days. has appointment in approximately 3 weeks with dentist but he is concerned it might be infected Review of Systems Constitutional: denies: Fever Throat: reports: Dental pain / toothache PD PAST MEDICAL HISTORY - Past Medical History Cardiovascular: Hypertension Respiratory: Sleep apnea, CPAP use Neuro: None Endocrine/Autoimmune: Other GI: GERD, Other : None, Kidney stones HEENT: None Psych: None Musculoskeletal: None Derm: None - Past Surgical History Past Surgical History: Yes General: Gastric surgery, Other - Present Medications Home Medications: Ambulatory Orders Medication Instructions Recorded Confirmed Propranolol [Inderal] 20 mg PO BID 04/17/13 09/06/18 Losartan [Cozaar] 50 mg PO DAILY 09/07/13 09/06/18 Allopurinol [Zyloprim] 100 mg PO BID 04/15/14 09/06/18 Aspirin 81 mg PO DAILY 03/21/16 09/06/18 Calcium Carbonate/Vitamin D3 1 each PO DAILY 03/24/16 09/06/18 [Calcium 500 + Vit D Caplet] Cyanocobalamin (Vitamin B-12) 1,500 mcg PO DAILY 03/24/16 09/06/18 [Vitamin B-12] Multivitamin [Multivitamins] 1 each PO DAILY 03/24/16 09/06/18 Potassium Chloride 10 meq PO DAILY 03/24/16 09/06/18 Venlafaxine [Effexor] 1 tab BID 02/02/17 09/06/18 HYDROcod/ACETAM 5/325 [[place] 5/325] 1 - 2 ea PO Q6H PRN #15 tablet 09/06/18 Penicillin V Potassium 500 mg PO Q6HR #27 tablet 09/06/18 - Allergies Allergies/Adverse Reactions: Allergies Allergy/AdvReac Type Severity Reaction Status Date / Time clarithromycin [From Biaxin] Allergy Severe Unknown Verified 09/06/18 03:37 lisinopril Allergy Mild Unknown Verified 09/06/18 03:37 Sulfa (Sulfonamide Allergy Unknown unknown Verified 09/06/18 03:37 Antibiotics) - Social History Does the pt smoke?: No Smoking Status: Never smoker Does the pt drink ETOH?: No Does the pt have substance abuse?: No - Immunizations Immunizations are current?: No Immunizations: TDAP >10years/unknown - POLST Patient has POLST: No PD ED PE NORMAL - Vitals Vital signs reviewed: Yes - General General: Alert and oriented X 3, No acute distress, Well developed/nourished - HEENT HEENT: Moist mucous membranes, Pharynx benign, Other (no facial swelling) - Neck Neck: Supple, no meningeal sign PD ED PE EXPANDED - HEENT HEENT Visual: 1 - tenderness (mild TTP (at gumline; tooth is absent)) Results - Vitals Vitals: Vital Signs - 24 hr 09/06/18 03:34 Temperature 36.4 C L Heart Rate 64 Respiratory 18 Rate Blood Pressure 142/96 H O2 Saturation 100 Oxygen O2 Source Room air PD MEDICAL DECISION MAKING - ED course Complexity details: considered differential, d/w patient Departure - Departure Disposition: 01 Home, Self Care Clinical Impression: Toothache Condition: Good Instructions: ED Tooth Pain Follow-Up: Anisha Vega ARNP [Primary Care Provider] - Prescriptions: Penicillin V Potassium 500 mg PO Q6HR #27 tablet HYDROcod/ACETAM 5/325 [[place] 5/325] 1 - 2 ea PO Q6H PRN #15 tablet PRN Reason: Pain Discharge Date/Time: 09/06/18 04:33
[2018-09-06] MEDS ORDERED: PENICILLIN VK 250 MG TABLET PO STA (04:24)
[2018-09-06] MEDS ORDERED: HYDROcod/ACETAM 5/325 MG TABLET PO STA (04:24)
== END 2018-09-06 04:33 | disposition home or self-care (01) ==
LOC: ED 03:28
DX: K08.89 Other specified disorders of teeth and supporting structures (principal); I10 Essential (primary) hypertension
CPT/HCPCS: 99283; A9270

== ENCOUNTER 2018-09-19 01:09 | Emergency (ER) | payer MEDICAID ==
--- NOTE | 2018-09-19 02:57 | ED Physician Documentation ---
PD HPI HEENT - Stated complaint Stated Complaint: TOOTH PX - Chief complaint Chief Complaint: Heent - History obtained from History obtained from: Patient - History of Present Illness Timing - onset: How many weeks ago (2) Timing - details: Gradual onset, Waxing and waning Pain level now: 6 Location: Tooth Improves: Nothing Associated symptoms: No: Fever Recently seen: Emergency Dept - Additional information Additional information: T+R 12 days ago from this ED for same c/o, completed the course of PCN and is out of the prescribed Vicodin. He has upcoming dental appointment 09/27, presents due to ongoing pain associated with same tooth. Review of Systems Constitutional: denies: Fever, Chills, Sweats Throat: reports: Dental pain / toothache PD PAST MEDICAL HISTORY - Past Medical History Past Medical History: Yes Cardiovascular: Hypertension Respiratory: Sleep apnea, CPAP use Neuro: None Endocrine/Autoimmune: Other GI: GERD, Other : None, Kidney stones HEENT: None Psych: None Musculoskeletal: None Derm: None - Past Surgical History Past Surgical History: Yes General: Gastric surgery, Other - Present Medications Home Medications: Ambulatory Orders Medication Instructions Recorded Confirmed Propranolol [Inderal] 20 mg PO BID 04/17/13 09/06/18 Losartan [Cozaar] 50 mg PO DAILY 09/07/13 09/06/18 Allopurinol [Zyloprim] 100 mg PO BID 04/15/14 09/06/18 Aspirin 81 mg PO DAILY 03/21/16 09/06/18 Calcium Carbonate/Vitamin D3 1 each PO DAILY 03/24/16 09/06/18 [Calcium 500 + Vit D Caplet] Cyanocobalamin (Vitamin B-12) 1,500 mcg PO DAILY 03/24/16 09/06/18 [Vitamin B-12] Multivitamin [Multivitamins] 1 each PO DAILY 03/24/16 09/06/18 Potassium Chloride 10 meq PO DAILY 03/24/16 09/06/18 Venlafaxine [Effexor] 1 tab BID 02/02/17 09/06/18 HYDROcod/ACETAM 5/325 [[place] 5/325] 1 - 2 ea PO Q6H PRN #15 tablet 09/06/18 Penicillin V Potassium 500 mg PO Q6HR #27 tablet 09/06/18 Clindamycin HCl [Clindamycin 300MG 300 mg PO Q6H #28 capsule 09/19/18 CAP] Hydrocodone/Acetaminophen 1 - 2 each PO Q6HR PRN #14 tablet 09/19/18 [Hydrocodone-Acetamin 5-325 mg] - Allergies Allergies/Adverse Reactions: Allergies Allergy/AdvReac Type Severity Reaction Status Date / Time clarithromycin [From Biaxin] Allergy Severe Unknown Verified 09/19/18 01:18 lisinopril Allergy Mild Unknown Verified 09/19/18 01:18 Sulfa (Sulfonamide Allergy Unknown unknown Verified 09/19/18 01:18 Antibiotics) - Social History Does the pt smoke?: No Smoking Status: Never smoker Does the pt drink ETOH?: No Does the pt have substance abuse?: No - Immunizations Immunizations are current?: No Immunizations: TDAP >10years/unknown - POLST Patient has POLST: No PD ED PE NORMAL - Vitals Vital signs reviewed: Yes - General General: Alert and oriented X 3, No acute distress, Well developed/nourished PD ED PE EXPANDED - HEENT HEENT Visual: 1 - tenderness (tooth is absent; at gumline is small area of tooth remnant that is TTP without erythema, edema, or fluctuance) Results - Vitals Vitals: Vital Signs - 24 hr 09/19/18 09/19/18 01:15 03:33 Temperature 36.1 C L 36.8 C Heart Rate 65 58 L Respiratory 16 18 Rate Blood Pressure 161/99 H 144/95 H O2 Saturation 100 100 Oxygen O2 Source Room air PD MEDICAL DECISION MAKING - ED course Complexity details: reviewed old records, considered differential, d/w patient Departure - Departure Disposition: 01 Home, Self Care Clinical Impression: Pain, dental Condition: Good Instructions: ED Tooth Pain Prescriptions: Hydrocodone/Acetaminophen [Hydrocodone-Acetamin 5-325 mg] 1 - 2 each PO Q6HR PRN #14 tablet PRN Reason: Pain Clindamycin HCl [Clindamycin 300MG CAP] 300 mg PO Q6H #28 capsule Comments: Follow up with your dentist as scheduled Discharge Date/Time: 09/19/18 03:32
[2018-09-19] MEDS ORDERED: CLINDAMYCIN 150 MG CAPSULE PO STA (03:14)
[2018-09-19] MEDS ORDERED: HYDROcod/ACETAM 5/325 MG TABLET PO STA (03:14)
[2018-09-19 03:34] VITALS: BP 144/95
== END 2018-09-19 03:32 | disposition home or self-care (01) ==
LOC: ED 01:09
DX: K08.89 Other specified disorders of teeth and supporting structures (principal); I10 Essential (primary) hypertension
CPT/HCPCS: 99283; A9270

== ENCOUNTER 2019-01-08 17:34 | Emergency (ER) | payer MEDICAID ==
[2019-01-08 17:41] VITALS: BP 162/100
[2019-01-08] MEDS ORDERED: CLINDAMYCIN 150 MG CAPSULE PO STA (18:40)
[2019-01-08] MEDS ORDERED: HYDROcod/ACETAM 5/325 MG TABLET PO STA (18:40)
--- NOTE | 2019-01-08 18:42 | ED Physician Documentation ---
PD HPI HEENT - Stated complaint Stated Complaint: TOOTH PX - Chief complaint Chief Complaint: Heent - History obtained from History obtained from: Patient - History of Present Illness Timing - onset: Other (5 days of pain from a left maxillary molar that is worsening over the last few days such that ibuprofen is no longer effective. No fevers or facial swelling. He has an appointment with his dentist later this week.) Review of Systems Constitutional: reports: Reviewed and negative Ears: reports: Ear pain Nose: reports: Reviewed and negative Throat: reports: Dental pain / toothache, Reviewed and negative. denies: Oral lesions / sores, Sore throat Cardiac: denies: Chest pain / pressure, Palpitations PD PAST MEDICAL HISTORY - Past Medical History Cardiovascular: Hypertension Respiratory: Sleep apnea, CPAP use Neuro: None Endocrine/Autoimmune: Other GI: GERD, Other : None, Kidney stones HEENT: None Psych: None Musculoskeletal: None Derm: None - Past Surgical History Past Surgical History: Yes General: Gastric surgery, Other - Present Medications Home Medications: Ambulatory Orders Medication Instructions Recorded Confirmed Propranolol [Inderal] 20 mg PO BID 04/17/13 09/06/18 Losartan [Cozaar] 50 mg PO DAILY 09/07/13 09/06/18 Allopurinol [Zyloprim] 100 mg PO BID 04/15/14 09/06/18 Aspirin 81 mg PO DAILY 03/21/16 09/06/18 Calcium Carbonate/Vitamin D3 1 each PO DAILY 03/24/16 09/06/18 [Calcium 500 + Vit D Caplet] Cyanocobalamin (Vitamin B-12) 1,500 mcg PO DAILY 03/24/16 09/06/18 [Vitamin B-12] Multivitamin [Multivitamins] 1 each PO DAILY 03/24/16 09/06/18 Potassium Chloride 10 meq PO DAILY 03/24/16 09/06/18 Venlafaxine [Effexor] 1 tab BID 02/02/17 09/06/18 HYDROcod/ACETAM 5/325 [[place] 5/325] 1 - 2 ea PO Q6H PRN #15 tablet 09/06/18 Penicillin V Potassium 500 mg PO Q6HR #27 tablet 09/06/18 Clindamycin HCl [Clindamycin 300MG 300 mg PO Q6H #28 capsule 09/19/18 CAP] Hydrocodone/Acetaminophen 1 - 2 each PO Q6HR PRN #14 tablet 09/19/18 [Hydrocodone-Acetamin 5-325 mg] Clindamycin HCl [Clindamycin 300MG 300 mg PO Q6H #40 capsule 01/08/19 CAP] Hydrocodone/Acetaminophen 1 - 2 each PO Q6H PRN #14 tablet 01/08/19 [Hydrocodon-Acetaminophen 5-325] - Allergies Allergies/Adverse Reactions: Allergies Allergy/AdvReac Type Severity Reaction Status Date / Time clarithromycin [From Biaxin] Allergy Severe Unknown Verified 01/08/19 17:40 lisinopril Allergy Mild Unknown Verified 01/08/19 17:40 Sulfa (Sulfonamide Allergy Unknown unknown Verified 01/08/19 17:40 Antibiotics) - Social History Does the pt smoke?: No Smoking Status: Never smoker Does the pt drink ETOH?: No Does the pt have substance abuse?: No - Immunizations Immunizations are current?: No Immunizations: TDAP >10years/unknown - POLST Patient has POLST: No PD ED PE NORMAL - Vitals Vital signs reviewed: Yes - General General: Alert and oriented X 3, No acute distress - HEENT HEENT: Ears normal, Other (There is a cavity on the anterior surface of a left maxillary molar that is tender but without facial swelling, trismus, sublingual edema, or gingival swelling.) - Neuro Neuro: Alert and oriented X 3, Normal speech - Psych Psych: Normal mood, Normal affect Results - Vitals Vitals: Vital Signs - 24 hr 01/08/19 17:38 Temperature 36 C L Heart Rate 63 Respiratory 18 Rate Blood Pressure 162/100 H O2 Saturation 97 Oxygen O2 Source Room air Departure - Departure Disposition: 01 Home, Self Care Clinical Impression: Dental abscess Condition: Good Record reviewed to determine appropriate education?: Yes Instructions: ED Abscess Dental Prescriptions: Clindamycin HCl [Clindamycin 300MG CAP] 300 mg PO Q6H #40 capsule Hydrocodone/Acetaminophen [Hydrocodon-Acetaminophen 5-325] 1 - 2 each PO Q6H PRN #14 tablet PRN Reason: pain Comments: It is very important that you follow-up with a dentist. When it comes to dental problems like yours, the emergency department can only offer a short-term solution to your long-term problem. A couple of low cost options for dental care include: [facility] in [place], calls [phone] for an appointment Or [facility] in [place], call [phone] for an appointment. Do not drink or drive while taking narcotic pain medication. Note that many narcotic pain relievers also contain Tylenol/acetaminophen. Please ensure that your total dose of acetaminophen from all sources does not exceed 3 g (3000 mg) per day. You may get constipated while on this medication. Take a stool softener such as Colace twice a day while you are on it. Also add an [id number]-[id number] laxative such as senna or MiraLAX on any day that you do not have a bowel movement. If you received a narcotic pain medication or sedative while in the emergency department, do not drive for the next 24 hours. Your blood pressure was elevated today on check into the emergency department. This does not mean that you have hypertension, it is a common phenomenon to come to the emergency department and have elevated blood pressure. I recommend that you see your primary care physician within the week to have it rechecked when you are feeling better.
== END 2019-01-08 18:47 | disposition home or self-care (01) ==
LOC: ED 17:34
DX: K04.7 Periapical abscess without sinus (principal); I10 Essential (primary) hypertension
CPT/HCPCS: 99283; A9270

== ENCOUNTER 2019-03-20 10:22 | Outpatient (CLI) | payer MEDICAID ==
[2019-03-20 18:58] LABS: BASOPHILS # (AUTO) 0.1 10^3/uL (0.0-0.1); BASOPHILS % (AUTO) 0.7 %; EOSINOPHILS # (AUTO) 0.4 10^3/uL (0.0-0.7); EOSINOPHILS % (AUTO) 4.7 %; HGB - HEMOGLOBIN 14.2 g/dL (14.0-18.0); LYMPHOCYTES # (AUTO) 2.5 10^3/uL (1.5-3.5); MEAN CORPUSCULAR HEMOGLOBIN 28.4 pg (27.0-31.0); MEAN CORPUSCULAR HGB CONC 31.7 g/dL (32.0-36.0); MEAN CORPUSCULAR VOLUME 89.6 fL (80.0-94.0); MEAN PLATELET VOLUME 11.3 fL (7.4-11.4); MONOCYTES # (AUTO) 0.5 10^3/uL (0.0-1.0); MONOCYTES % (AUTO) 6.4 %; NEUTROPHILS # (AUTO) 4.3 10^3/uL (1.5-6.6); NEUTROPHILS % (AUTO) 55.8 %; PLT - PLATELET COUNT 208 10^3/uL (130-450); RED CELL DISTRIBUTION WIDTH 13.4 % (12.0-15.0); WHITE BLOOD COUNT 7.7 x10^3/uL (4.8-10.8)
[2019-03-20 19:21] LABS: HB2 TOTAL 14.6 g/dL; HEMOGLOBIN A1C 0.5 g/dL; HEMOGLOBIN A1C % 5.3 % (4.6-6.2)
[2019-03-20 19:28] LABS: ALBUMIN 4.1 g/dL (3.2-5.5); ALBUMIN/GLOBULIN RATIO 1.2 (1.0-2.2); ALKALINE PHOSPHATASE 76 IU/L (42-121); ALT ALANINE AMINOTRANSFERASE 21 IU/L (10-60); AST ASPARTATE AMINOTRANSFERASE 20 IU/L (10-42); BILIRUBIN,TOTAL 0.8 mg/dL (0.2-1.0); BUN - BLOOD UREA NITROGEN 9 mg/dL (6-20); CALCIUM 8.8 mg/dL (8.5-10.3); CARBON DIOXIDE - CO2 23 mmol/L (21-32); CHLORIDE 107 mmol/L (101-111); CHOL/HDL RATIO 3.5 (<5.0); CHOLESTEROL 128 mg/dL; CREATININE 0.8 mg/dL (0.6-1.2); GFR - MDRD 105 (>89); GLUCOSE 95 mg/dL (70-100); HDL CHOLESTEROL 37 mg/dL; LDL CHOLESTEROL,CALCULATED 73 mg/dL; SODIUM 141 mmol/L (135-145); TOTAL PROTEIN 7.5 g/dL (6.7-8.2); URIC ACID 6.1 mg/dL (2.6-7.2); VLDL CHOLESTEROL 18 mg/dL
[2019-03-20 19:42] LABS: CREATININE,URINE 142.9 mg/dL; MICROALBUM/CREATININE RATIO,UR 6.3 ug/mg (<30.0); MICROALBUMIN,URINE 0.9 mg/dL (0-300.0)
== END 2019-03-20 23:59 | disposition home or self-care (01) ==
LOC: LAB.N 10:22
PROVIDERS: ATTEND Family Medicine
DX: N20.0 Calculus of kidney (principal); R16.1 Splenomegaly, not elsewhere classified; R16.0 Hepatomegaly, not elsewhere classified; Z68.42 Body mass index [BMI] 45.0-49.9, adult; E88.81 Metabolic syndrome and other insulin resistance; K21.9 Gastro-esophageal reflux disease without esophagitis; G47.33 Obstructive sleep apnea (adult) (pediatric); M10.9 Gout, unspecified; D64.9 Anemia, unspecified; I10 Essential (primary) hypertension; E66.01 Morbid (severe) obesity due to excess calories
CPT/HCPCS: 36415; 80050; 80061; 82043; 82570; 83036; 83721; 84550

== ENCOUNTER 2019-08-23 03:19 | Emergency (ER) | payer MEDICAID ==
[2019-08-23] MEDS ORDERED: HYDROcod/ACETAM 5/325 MG TABLET PO STA (04:04)
[2019-08-23] MEDS ORDERED: CYCLOBENZAPRINE 10 MG TABLET PO STA (04:04)
[2019-08-23] MEDS ORDERED: DEXAMETHASONE 10 MG/ML VIAL PO STA (04:07)
[2019-08-23] MEDS ORDERED: CHERRY SYRUP 10 ML UDC PO ONE (04:07)
--- NOTE | 2019-08-23 04:07 | ED Physician Documentation ---
PD HPI UPPER EXT INJURY - Stated complaint Stated Complaint: R ARM PX - Chief complaint Chief Complaint: Ext Problem - History obtained from History obtained from: Patient, Family - History of Present Illness Location: Right, Arm Type of injury: Other (compression injury) Where injury occurred: Home Timing - onset: How many days ago (3) Timing - duration: Days (3) Timing - details: Gradual onset, Still present Improved by: Rest, Immobilization Worsened by: Moving. No: Palpating Associated symptoms: No: Weakness, Numbness, Tingling, Swelling, Discolored Contributing factors: No: Anticoagulated Similar symptoms before: Diagnosis (axillary nerve compression) Recently seen: Not recently seen - Additonal information Additional information: Previously well 44-year-old male has developed pain in his right biceps. He believes his child fell asleep with his head up against his arm and the following day the patient experienced pain to the arm and he is having some difficulty with use of the biceps now causing pain. He has enough pain that he is not been able to sleep for the past 3 nights. He is brought into the emergency department for o'clock in the morning at the insistence of his . He has had a similar type of injury when he laid his arm over the edge of an easy chair and fell asleep. At that time he had axillary nerve damage. He recovered from that and felt that the use of a sling helped. Today he has mostly pain associated with use of the muscle. Review of Systems Constitutional: denies: Fever Ears: denies: Ear pain Nose: denies: Congestion Throat: denies: Sore throat Respiratory: denies: Dyspnea GI: denies: Vomiting Musculoskeletal: reports: Extremity pain. denies: Neck pain, Back pain Neurologic: denies: Generalized weakness, Focal weakness, Numbness PD PAST MEDICAL HISTORY - Past Medical History Past Medical History: Yes Cardiovascular: Hypertension Respiratory: Sleep apnea, CPAP use Neuro: None Endocrine/Autoimmune: Other GI: GERD, Other : None, Kidney stones HEENT: None Psych: None Musculoskeletal: None Derm: None - Past Surgical History Past Surgical History: Yes General: Gastric surgery, Other - Present Medications Home Medications: Ambulatory Orders Medication Instructions Recorded Confirmed Propranolol [Inderal] 20 mg PO BID 04/17/13 09/06/18 Losartan [Cozaar] 50 mg PO DAILY 09/07/13 09/06/18 Allopurinol [Zyloprim] 100 mg PO BID 04/15/14 09/06/18 Aspirin 81 mg PO DAILY 03/21/16 09/06/18 Calcium Carbonate/Vitamin D3 1 each PO DAILY 03/24/16 09/06/18 [Calcium 500 + Vit D Caplet] Cyanocobalamin (Vitamin B-12) 1,500 mcg PO DAILY 03/24/16 09/06/18 [Vitamin B-12] Multivitamin [Multivitamins] 1 each PO DAILY 03/24/16 09/06/18 Potassium Chloride 10 meq PO DAILY 03/24/16 09/06/18 Venlafaxine [Effexor] 1 tab BID 02/02/17 09/06/18 HYDROcod/ACETAM 5/325 [[place] 5/325] 1 - 2 ea PO Q6H PRN #15 tablet 09/06/18 Penicillin V Potassium 500 mg PO Q6HR #27 tablet 09/06/18 Clindamycin HCl [Clindamycin 300MG 300 mg PO Q6H #28 capsule 09/19/18 CAP] Hydrocodone/Acetaminophen 1 - 2 each PO Q6HR PRN #14 tablet 09/19/18 [Hydrocodone-Acetamin 5-325 mg] Clindamycin HCl [Clindamycin 300MG 300 mg PO Q6H #40 capsule 01/08/19 CAP] Hydrocodone/Acetaminophen 1 - 2 each PO Q6H PRN #14 tablet 01/08/19 [Hydrocodon-Acetaminophen 5-325] Cyclobenzaprine [Flexeril] 10 mg PO TID PRN #20 tablet 08/23/19 Hydrocodone/Acetaminophen 1 - 2 each PO Q6H PRN #14 tablet 08/23/19 [Hydrocodon-Acetaminophen 5-325] - Allergies Allergies/Adverse Reactions: Allergies Allergy/AdvReac Type Severity Reaction Status Date / Time clarithromycin [From Biaxin] Allergy Severe Unknown Verified 08/23/19 03:27 lisinopril Allergy Mild Unknown Verified 08/23/19 03:27 Sulfa (Sulfonamide Allergy Unknown unknown Verified 08/23/19 03:27 Antibiotics) - Social History Does the pt smoke?: No Smoking Status: Never smoker Does the pt drink ETOH?: No Does the pt have substance abuse?: No - Immunizations Immunizations are current?: No Immunizations: TDAP >10years/unknown - POLST Patient has POLST: No PD ED PE NORMAL - Vitals Vital signs reviewed: Yes (hpyertensive) - General General: Alert and oriented X 3, No acute distress, Well developed/nourished - HEENT HEENT: Atraumatic, PERRL, EOMI - Neck Neck: Supple, no meningeal sign, No bony TTP - Respiratory Respiratory: No respiratory distress - Derm Derm: Normal color, Warm and dry, No rash - Extremities Extremities: No deformity, No edema, Other (The patient is able to flex the arm with pain over the biceps and with passive movement there is not pain. There is minimal pain with direct palpation. 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 Pain bad enough that he has not been able to sleep for the past 3 nights. He has a history of compression injury to the muscle. He does not appear to have any nerve injury on this visit. Here in the emergency department he is administered dexamethasone 10 mg orally Flexeril 10 mg and hydrocodone. He is placed into a sling. Departure - Departure Disposition: 01 Home, Self Care Clinical Impression: Biceps muscle strain Qualifiers: Encounter type: initial encounter Laterality: right Qualified Code(s): S46.211A - Strain of muscle, fascia and tendon of other parts of biceps, right arm, initial encounter Condition: Stable Instructions: ED Strain Muscle Ext Follow-Up: HANNAH AYALA MD [Primary Care Provider] - Prescriptions: Cyclobenzaprine [Flexeril] 10 mg PO TID PRN #20 tablet PRN Reason: Spasms Hydrocodone/Acetaminophen [Hydrocodon-Acetaminophen 5-325] 1 - 2 each PO Q6H PRN #14 tablet PRN Reason: pain
[2019-08-23 04:22] VITALS: BP 164/103
== END 2019-08-23 04:21 | disposition home or self-care (01) ==
LOC: ED 03:19
DX: S46.211A Strain of muscle, fascia and tendon of other parts of biceps, right arm, initial encounter (principal); X58.XXXA Exposure to other specified factors, initial encounter; Y92.834 Zoological garden (Zoo) as the place of occurrence of the external cause; I10 Essential (primary) hypertension
CPT/HCPCS: 99282; 99284; A9270

== ENCOUNTER 2020-01-18 08:00 | Outpatient (CLI) | payer MEDICAID ==
[2020-01-18 18:33] LABS: BASOPHILS # (AUTO) 0.1 10^3/uL (0.0-0.1); BASOPHILS % (AUTO) 0.7 %; EOSINOPHILS # (AUTO) 0.2 10^3/uL (0.0-0.7); EOSINOPHILS % (AUTO) 2.3 %; HGB - HEMOGLOBIN 13.8 g/dL (14.0-18.0); LYMPHOCYTES # (AUTO) 2.1 10^3/uL (1.5-3.5); LYMPHOCYTES % (AUTO) 29.2 %; MEAN CORPUSCULAR HEMOGLOBIN 27.5 pg (27.0-31.0); MEAN CORPUSCULAR HGB CONC 31.7 g/dL (32.0-36.0); MONOCYTES # (AUTO) 0.5 10^3/uL (0.0-1.0); MONOCYTES % (AUTO) 6.6 %; NEUTROPHILS # (AUTO) 4.4 10^3/uL (1.5-6.6); NEUTROPHILS % (AUTO) 60.9 %; PLT - PLATELET COUNT 206 10^3/uL (130-450); RED BLOOD COUNT 5.01 10^6/uL (4.70-6.10); RED CELL DISTRIBUTION WIDTH 13.2 % (12.0-15.0); WHITE BLOOD COUNT 7.3 x10^3/uL (4.8-10.8)
[2020-01-18 18:52] LABS: ALBUMIN 3.9 g/dL (3.2-5.5); ALBUMIN/GLOBULIN RATIO 1.3 (1.0-2.2); BILIRUBIN,TOTAL 0.7 mg/dL (0.2-1.0); CALCIUM 8.6 mg/dL (8.5-10.3); CREATININE 0.9 mg/dL (0.6-1.2)
== END 2020-01-18 23:59 | disposition home or self-care (01) ==
LOC: LAB.WCP 08:00
PROVIDERS: ATTEND Family Medicine
DX: R10.9 Unspecified abdominal pain (principal)
CPT/HCPCS: 36415; 80053; 82150; 83690; 85025

== ENCOUNTER 2020-01-21 15:01 | Outpatient (CLI) | payer MEDICAID ==
--- NOTE | 2020-01-21 20:35 | Ultrasound Report ---
Reason: ABDOMINAL DISCOMFORT Procedure Date: 01/21/2020 Accession Number: [id number] / [id number] Procedure: US - Abdomen Complete CPT Code: Final Report FULL RESULT: EXAM: ABDOMEN ULTRASOUND EXAM DATE: 01/21/2020 04:10 PM. CLINICAL HISTORY: Abdominal discomfort. Status post gastric bypass. Nausea. Cramping. Diarrhea. Constipation. COMPARISON: ABDOMEN LIMITED 05/13/2018 12:21 PM ABDOMEN/PELVIS W/ 04/07/2018 9:31 PM. TECHNIQUE: Real-time scanning was performed with static images obtained. FINDINGS: Liver: Hepatic parenchymal echotexture is within normal limits. No hepatic lesions. No intrahepatic ductal dilatation. 20.7 cm. Main portal vein flow: Hepatopetal. Gallbladder: Normal. No stones, wall thickening, or sonographic Munoz's sign. Biliary System: Common bile duct measures 5 mm. No intrahepatic or extrahepatic ductal dilatation. Pancreas: Pancreas not well visualized due to overlying bowel gas. Kidneys: Right: 11.7 cm longitudinally. Normal echotexture. Mild right hydronephrosis. No renal calculi are identified. Left: 11.7 cm longitudinally. Normal. No contour-deforming mass, stones, or hydronephrosis. Spleen: 14.1 cm. Mildly enlarged although unchanged. No splenic lesions. Aorta and Inferior Vena Cava: Abdominal aorta is normal in caliber with the proximal aspect measuring up to 2.7 cm, midportion measuring 2.1 cm in distal aspect measuring 2.5 cm. IVC not well seen. Other: No ascites. IMPRESSION: 1. Hepatic parenchymal echotexture within normal limits. 2. Mild right hydronephrosis. 3. Normal gallbladder. No biliary ductal dilatation. 4. Normal caliber abdominal aorta. 5. Splenomegaly. RADIA
== END 2020-01-21 15:02 | disposition home or self-care (01) ==
LOC: DI 15:01
PROVIDERS: ATTEND Family Medicine
DX: N13.30 Unspecified hydronephrosis (principal)
CPT/HCPCS: 76700

== ENCOUNTER 2020-02-13 02:41 | Emergency (ER) | payer MEDICAID ==
--- NOTE | 2020-02-13 02:48 | ED Physician Documentation ---
PD HPI HEENT - Stated complaint Stated Complaint: THROAT PX PD PAST MEDICAL HISTORY - Past Medical History Cardiovascular: Hypertension Respiratory: Sleep apnea, CPAP use Neuro: None Endocrine/Autoimmune: Other GI: GERD, Other : None, Kidney stones HEENT: None Psych: None Musculoskeletal: None Derm: None - Past Surgical History Past Surgical History: Yes General: Gastric surgery, Other - Present Medications Home Medications: Ambulatory Orders Medication Instructions Recorded Confirmed Propranolol [Inderal] 20 mg PO BID 04/17/13 09/06/18 Losartan [Cozaar] 50 mg PO DAILY 09/07/13 09/06/18 allopurinoL [Zyloprim] 100 mg PO BID 04/15/14 09/06/18 Aspirin 81 mg PO DAILY 03/21/16 09/06/18 Calcium Carbonate/Vitamin D3 1 each PO DAILY 03/24/16 09/06/18 [Calcium 500 + Vit D Caplet] Cyanocobalamin (Vitamin B-12) 1,500 mcg PO DAILY 03/24/16 09/06/18 [Vitamin B-12] Multivitamin [Multivitamins] 1 each PO DAILY 03/24/16 09/06/18 Potassium Chloride 10 meq PO DAILY 03/24/16 09/06/18 Venlafaxine [Effexor] 1 tab BID 02/02/17 09/06/18 HYDROcod/ACETAM 5/325 [[place] 5/325] 1 - 2 ea PO Q6H PRN #15 tablet 09/06/18 Penicillin V Potassium 500 mg PO Q6HR #27 tablet 09/06/18 Clindamycin HCl [Clindamycin 300MG 300 mg PO Q6H #28 capsule 09/19/18 CAP] Hydrocodone/Acetaminophen 1 - 2 each PO Q6HR PRN #14 tablet 09/19/18 [Hydrocodone-Acetamin 5-325 mg] Clindamycin HCl [Clindamycin 300MG 300 mg PO Q6H #40 capsule 01/08/19 CAP] Hydrocodone/Acetaminophen 1 - 2 each PO Q6H PRN #14 tablet 01/08/19 [Hydrocodon-Acetaminophen 5-325] Cyclobenzaprine [Flexeril] 10 mg PO TID PRN #20 tablet 08/23/19 Hydrocodone/Acetaminophen 1 - 2 each PO Q6H PRN #14 tablet 08/23/19 [Hydrocodon-Acetaminophen 5-325] - Allergies Allergies/Adverse Reactions: Allergies Allergy/AdvReac Type Severity Reaction Status Date / Time clarithromycin [From Biaxin] Allergy Severe Unknown Verified 08/23/19 03:27 lisinopril Allergy Mild Unknown Verified 08/23/19 03:27 Sulfa (Sulfonamide Allergy Unknown unknown Verified 08/23/19 03:27 Antibiotics) - Social History Does the pt smoke?: No Smoking Status: Never smoker Does the pt drink ETOH?: No Does the pt have substance abuse?: No - Immunizations Immunizations are current?: No Immunizations: TDAP >10years/unknown - POLST Patient has POLST: No Results - Vitals Vitals: Oxygen O2 Source Room air
--- NOTE | 2020-02-13 02:53 | ED Physician Documentation ---
History of Present Illness - Stated complaint Stated Complaint: THROAT PX - History obtained from History obtained from: Patient - History of Present Illness Timing: How many weeks ago (3-4 weeks, but worse x 2 days) Pain level max: 5 Pain level now: 0 Radiates to: does not radiate Improved by: no ameliorating factors Worsened by: eating - Additonal information Additional information: patient w/ h/o gastric bypass, c/o one month of epigastric discomfort after eating and early satiety. symptoms x 1 month, worse past 2 days. nausea, no vomiting. seen by PMD last month and had outpatient US that shower splenomegaly (not new) and right hydronephrosis (he is in process of being referred to urology) Review of Systems Constitutional: reports: Reviewed and negative Cardiac: reports: Reviewed and negative Respiratory: reports: Reviewed and negative GI: reports: Abdominal Pain, Nausea, Diarrhea. denies: Abdominal Swelling, Vomiting, Constipation : denies: Dysuria, Frequency, Hematuria Musculoskeletal: denies: Back pain PD PAST MEDICAL HISTORY - Past Medical History Cardiovascular: Hypertension Respiratory: Sleep apnea, CPAP use Neuro: None Endocrine/Autoimmune: Other GI: GERD, Other : None, Kidney stones HEENT: None Psych: None Musculoskeletal: None Derm: None - Past Surgical History Past Surgical History: Yes General: Gastric surgery, Other - Present Medications Home Medications: Ambulatory Orders Medication Instructions Recorded Confirmed Propranolol [Inderal] 20 mg PO BID 04/17/13 02/13/20 Losartan [Cozaar] 50 mg PO DAILY 09/07/13 02/13/20 allopurinoL [Zyloprim] 100 mg PO BID 04/15/14 02/13/20 Aspirin 81 mg PO DAILY 03/21/16 02/13/20 Venlafaxine [Effexor] 37.5 mg PO BID 02/02/17 02/13/20 HYDROcod/ACETAM 5/325 [[place] 5/325] 1 - 2 ea PO Q6H PRN #15 tablet 09/06/18 02/13/20 Ondansetron Odt [Zofran] 4 mg TL Q6H PRN #10 tablet 02/13/20 oxyCODONE [Roxicodone] 5 - 10 mg PO Q6H PRN #14 tablet 02/13/20 - Allergies Allergies/Adverse Reactions: Allergies Allergy/AdvReac Type Severity Reaction Status Date / Time clarithromycin [From Biaxin] Allergy Severe Unknown Verified 02/13/20 02:58 lisinopril Allergy Mild Unknown Verified 02/13/20 02:58 Sulfa (Sulfonamide Allergy Unknown unknown Verified 02/13/20 02:58 Antibiotics) - Social History Does the pt smoke?: No Smoking Status: Never smoker Does the pt drink ETOH?: No Does the pt have substance abuse?: No - Immunizations Immunizations are current?: No Immunizations: TDAP >10years/unknown - POLST Patient has POLST: No PD ED PE NORMAL - Vitals Vital signs reviewed: Yes - General General: Alert and oriented X 3, No acute distress, Other (obese) - HEENT HEENT: Moist mucous membranes - Neck Neck: Supple, no meningeal sign - Cardiac Cardiac: RRR, No murmur - Respiratory Respiratory: No respiratory distress, Clear bilaterally - Abdomen Abdomen: Normal bowel sounds, Soft, Non tender, Non distended - Back Back: No CVA TTP - Derm Derm: Normal color, Warm and dry, No rash - Extremities Extremities: No edema Results - Vitals Vitals: Oxygen O2 Source Room air - Labs Labs: Laboratory Tests 02/13/20 02/13/20 02:55 02:55 WBC 7.3 RBC 5.13 Hgb 14.2 Hct 44.8 MCV 87.3 MCH 27.7 MCHC 31.7 L RDW 13.1 Plt Count 197 MPV 10.4 Neut # (Auto) 4.4 Lymph # (Auto) 2.2 [place] # (Auto) 0.4 Eos # (Auto) 0.2 Baso # (Auto) 0.0 Absolute Nucleated RBC 0.00 Nucleated RBC % 0.0 Sodium 140 Potassium 4.0 Chloride 105 Carbon Dioxide 28 Anion Gap 7.0 BUN 9 Creatinine 0.9 Estimated GFR (MDRD) 91 Glucose 88 Calcium 9.1 Total Bilirubin 0.8 AST 18 ALT 11 Alkaline Phosphatase 74 Total Protein 7.8 Albumin 4.2 Globulin 3.6 Albumin/Globulin Ratio 1.2 Lipase 32 - Rads (name of study) A/P CT with IV and PO contrast Radiology: Prelim report reviewed, See rad report PD MEDICAL DECISION MAKING - ED course Complexity details: reviewed results, re-evaluated patient, considered differential, d/w patient Departure - Departure Disposition: 01 Home, Self Care Clinical Impression: Ureterolithiasis, Hiatal hernia Condition: Good Instructions: ED Abdominal Pain Unkn Cause, ED Stone Renal W Colic Follow-Up: HANNAH AYALA MD [Primary Care Provider] - Prescriptions: Ondansetron Odt [Zofran] 4 mg TL Q6H PRN #10 tablet PRN Reason: Nausea / Vomiting oxyCODONE [Roxicodone] 5 - 10 mg PO Q6H PRN #14 tablet PRN Reason: Pain Discharge Date/Time: 02/13/20 08:03
[2020-02-13 03:28] LABS: BASOPHILS % (AUTO) 0.5 %; EOSINOPHILS # (AUTO) 0.2 10^3/uL (0.0-0.7); EOSINOPHILS % (AUTO) 2.1 %; HGB - HEMOGLOBIN 14.2 g/dL (14.0-18.0); LYMPHOCYTES # (AUTO) 2.2 10^3/uL (1.5-3.5); LYMPHOCYTES % (AUTO) 30.8 %; MEAN CORPUSCULAR HEMOGLOBIN 27.7 pg (27.0-31.0); MEAN CORPUSCULAR HGB CONC 31.7 g/dL (32.0-36.0); MEAN CORPUSCULAR VOLUME 87.3 fL (80.0-94.0); MEAN PLATELET VOLUME 10.4 fL (7.4-11.4); MONOCYTES # (AUTO) 0.4 10^3/uL (0.0-1.0); MONOCYTES % (AUTO) 5.5 %; NEUTROPHILS # (AUTO) 4.4 10^3/uL (1.5-6.6); NEUTROPHILS % (AUTO) 60.8 %; PLT - PLATELET COUNT 197 10^3/uL (130-450); RED BLOOD COUNT 5.13 10^6/uL (4.70-6.10); RED CELL DISTRIBUTION WIDTH 13.1 % (12.0-15.0); WHITE BLOOD COUNT 7.3 x10^3/uL (4.8-10.8)
[2020-02-13 03:37] LABS: ALBUMIN 4.2 g/dL (3.2-5.5); ALBUMIN/GLOBULIN RATIO 1.2 (1.0-2.2); BILIRUBIN,TOTAL 0.8 mg/dL (0.2-1.0); CALCIUM 9.1 mg/dL (8.5-10.3); CREATININE 0.9 mg/dL (0.6-1.2); TOTAL PROTEIN 7.8 g/dL (6.7-8.2)
[2020-02-13] MEDS ORDERED: IOVERSOL 320 100 ML VIAL IVP ONE ×2 (03:43→05:47)
[2020-02-13] MEDS ORDERED: IOVERSOL 320 50 ML VIAL ONE (03:59)
[2020-02-13] MEDS ORDERED: IOVERSOL 320 50 ML VIAL PO ONE (05:47)
[2020-02-13] MEDS ORDERED: oxyCODONE 5 MG TABLET PO STA (07:30)
[2020-02-13] MEDS ORDERED: ONDANSETRON ODT 4 MG TABLET TL STA (07:30)
[2020-02-13 08:03] VITALS: BP 151/98
--- NOTE | 2020-02-13 08:29 | CT Report ---
Reason: abdominal pain, h/o gastric bypass Procedure Date: 02/13/2020 Accession Number: [id number] / [id number] Procedure: CT - Abdomen/Pelvis W CPT Code: Final Report FULL RESULT: PROCEDURE: Abdomen/Pelvis W INDICATIONS: abdominal pain, h/o gastric bypass CONTRAST: IV CONTRAST: Optiray 320 ml: 100 PO CONTRAST: Optiray 320 ml50 TECHNIQUE: After the administration of oral and intravenous contrast, 5 mm thick sections acquired from the diaphragms to the symphysis. 5 mm thick coronal and sagittal reformats were acquired. For radiation dose reduction, the following was used: automated exposure control, adjustment of mA and/or kV according to patient size. COMPARISON: None. FINDINGS: Image quality: Excellent. ABDOMEN: Lung bases: Lung bases are clear. Heart size is normal. Solid organs: Liver and spleen are normal in size and enhancement. Gallbladder negative Biliary system is non dilated. Pancreas enhances normally. No adrenal nodules. Kidneys demonstrate normal size and enhancement, without hydronephrosis. Peritoneum and bowel: Postsurgical changes related prior gastric bypass. The gastric pouch appears largely within the chest through hiatal hernia. No free fluid or air. Normal appendix Nodes and vessels: No retroperitoneal or mesenteric adenopathy by size criteria. Aorta and inferior vena cava are normal in size. Miscellaneous: No ventral hernias. PELVIS: Genitourinary: Bladder wall thickness is normal. Miscellaneous: No inguinal hernias or adenopathy. Bones: No suspicious bony lesions. No vertebral body compression fractures. IMPRESSION: Proximal right ureteral calculus, or alternatively 2 adjacent smaller calculi with minimal urinary obstruction. Status post gastric bypass with hiatal hernia, containing gastric pouch. Findings are concordant with the preliminary study interpretation provided at the time of the study. Reviewed by: Jp Londono MD on 02/13/2020 8:28 AM PDT Approved by: Jp Londono MD on 02/13/2020 8:28 AM PDT Station ID: [id number]
== END 2020-02-13 08:03 | disposition home or self-care (01) ==
LOC: ED 02:41
DX: N20.1 Calculus of ureter (principal); K44.9 Diaphragmatic hernia without obstruction or gangrene; Z98.84 Bariatric surgery status; I10 Essential (primary) hypertension; Z79.82 Long term (current) use of aspirin
CPT/HCPCS: 36415; 74177; 80053; 83690; 85025; 99284; A9270; Q0162; Q9967

== ENCOUNTER 2020-03-28 04:41 | Emergency (ER) | payer MEDICAID ==
[2020-03-28] MEDS ORDERED: SODIUM CHLORIDE 0.9% 1,000 ML IV STA (04:51)
[2020-03-28] MEDS ORDERED: ONDANSETRON 4 MG/2 ML VIAL IVP STA (04:51)
[2020-03-28] MEDS ORDERED: KETOROLAC 30 MG/ML VIAL IVP STA (05:06)
--- NOTE | 2020-03-28 07:00 | ED Physician Documentation ---
History of Present Illness - Stated complaint Stated Complaint: LOWER RIGHT SIDE PX,NAUSEA - Chief complaint Chief Complaint: Abd Pain - History obtained from History obtained from: Patient - Additonal information Additional information: Patient comes emergency department complaining of right flank pain that started up again a couple of days ago. The patient 2 months ago was diagnosed with a kidney stone which he states he was told was "barbell shaped". He does not recall ever passing the stone, and now, has been having pain that has not migrated at all. He has not noticed any polo hematuria, but does note that his urine has been dark. He states he has been nauseated and has not been able to hold down solids, though he has tolerated fluids. He denies fevers or chills. No dysuria. No other complaints at this time. He has not yet followed up with urology. Review of Systems Ten Systems: 10 systems reviewed and negative Constitutional: reports: Reviewed and negative Eyes: reports: Reviewed and negative Ears: reports: Reviewed and negative Nose: reports: Reviewed and negative Throat: reports: Reviewed and negative Cardiac: reports: Reviewed and negative Respiratory: reports: Reviewed and negative GI: reports: Abdominal Pain, Nausea, Vomiting : reports: Reviewed and negative Skin: reports: Reviewed and negative Musculoskeletal: reports: Reviewed and negative Neurologic: reports: Reviewed and negative Psychiatric: reports: Reviewed and negative Endocrine: reports: Reviewed and negative Immunocompromised: reports: Reviewed and negative PD PAST MEDICAL HISTORY - Past Medical History Cardiovascular: Hypertension Respiratory: Sleep apnea, CPAP use Neuro: None Endocrine/Autoimmune: Other GI: GERD, Other : None, Kidney stones HEENT: None Psych: None Musculoskeletal: None Derm: None - Past Surgical History Past Surgical History: Yes General: Gastric surgery, Other - Present Medications Home Medications: Ambulatory Orders Medication Instructions Recorded Confirmed Propranolol [Inderal] 20 mg PO BID 04/17/13 02/13/20 Losartan [Cozaar] 50 mg PO DAILY 09/07/13 02/13/20 allopurinoL [Zyloprim] 100 mg PO BID 04/15/14 02/13/20 Aspirin 81 mg PO DAILY 03/21/16 02/13/20 Venlafaxine [Effexor] 37.5 mg PO BID 02/02/17 02/13/20 HYDROcod/ACETAM 5/325 [[place] 5/325] 1 - 2 ea PO Q6H PRN #15 tablet 09/06/18 02/13/20 Ondansetron Odt [Zofran] 4 mg TL Q6H PRN #10 tablet 02/13/20 oxyCODONE [Roxicodone] 5 - 10 mg PO Q6H PRN #14 tablet 02/13/20 Hydrocodone/Acetaminophen 1 - 2 each PO Q6H PRN #14 tablet 03/28/20 [Hydrocodon-Acetaminophen 5-325] Ondansetron Odt [Zofran] 4 mg TL Q6H PRN #10 tablet 03/28/20 Tamsulosin HCl [Flomax] 0.4 mg PO DAILY #7 cap.er.24h 03/28/20 - Allergies Allergies/Adverse Reactions: Allergies Allergy/AdvReac Type Severity Reaction Status Date / Time clarithromycin [From Biaxin] Allergy Severe Unknown Verified 03/28/20 04:49 lisinopril Allergy Mild Unknown Verified 03/28/20 04:49 Sulfa (Sulfonamide Allergy Unknown unknown Verified 03/28/20 04:49 Antibiotics) - Social History Does the pt smoke?: No Smoking Status: Never smoker Does the pt drink ETOH?: No Does the pt have substance abuse?: No - Immunizations Immunizations are current?: No Immunizations: TDAP >10years/unknown - POLST Patient has POLST: No PD ED PE NORMAL - Vitals Vital signs reviewed: Yes - General General: Alert and oriented X 3, No acute distress - HEENT HEENT: Atraumatic, PERRL, EOMI, Moist mucous membranes - Neck Neck: Supple, no meningeal sign - Cardiac Cardiac: RRR, No murmur, Strong equal pulses - Respiratory Respiratory: No respiratory distress, Clear bilaterally - Abdomen Abdomen: Soft, Non distended, Other (Moderate right flank tenderness, no rebound or guarding.) - Derm Derm: Normal color, Warm and dry, No rash - Extremities Extremities: No deformity, No edema, No calf tenderness / cord - Neuro Neuro: Alert and oriented X 3 - Psych Psych: Normal mood, Normal affect Results - Vitals Vitals: Vital Signs - 24 hr 03/28/20 03/28/20 03/28/20 04:45 06:00 07:00 Temperature 36.4 C L Heart Rate 53 L 49 L 48 L Respiratory 18 16 16 Rate Blood Pressure 144/91 H 135/89 H 136/82 H O2 Saturation 98 98 98 Oxygen O2 Source Room air - Rads (name of study) CT abdomen/pelvis no contrast Radiology: Final report received, EMP read indepedently, See rad report (6 x 8 mm stone in the proximal to mid ureter on the right. Moderate hydronephrosis on the right.) PD MEDICAL DECISION MAKING - ED course Complexity details: reviewed old records, reviewed results, re-evaluated patie nt, considered differential, d/w patient ED course: Patient was treated symptomatically in the emergency department with IV Toradol and Zofran and given a liter of 0.9 normal saline, after which he did report feeling better. The patient was worked up with CT of the abdomen and pelvis, which showed a 6 x 8 mm stone in the proximal to mid ureter. Moderate right hydronephrosis was noted. I discussed with the patient that his stone appears to have migrated a little bit from his last CT, which showed the stone to be solidly in the proximal ureter. Presumably this is the same stone, though the CT reading from February did not give any dimensions of the stone. I discussed with the patient and his that it is time for the patient to follow-up with the urologist, to be sure that the stone is going to pass. If not, they will need to discuss other potential options with urology. I have prescribed Zofran, Flomax, and Vicodin, as well as refilled the patient's allopurinol.We have discussed to the usual indications for return Departure - Departure Disposition: 01 Home, Self Care Clinical Impression: Kidney stone on right side Condition: Stable Instructions: ED Stone Renal W Colic Prescriptions: Tamsulosin HCl [Flomax] 0.4 mg PO DAILY #7 cap.er.24h Hydrocodone/Acetaminophen [Hydrocodon-Acetaminophen 5-325] 1 - 2 each PO Q6H PRN #14 tablet PRN Reason: pain Ondansetron Odt [Zofran] 4 mg TL Q6H PRN #10 tablet PRN Reason: Nausea / Vomiting Comments: You have a 6 x 8 mm kidney stone which is now in the mid ureter, as opposed to when you were seen in February, when you have a stone in the proximal, or early ureter. This is most likely the same stone. As the stone seems to be progressing rather slowly and is of a bit larger size, it is a good idea for you to follow-up with the urologist. You may follow-up with the one whose contact information you already have, as we have discussed. Please be sure in the meantime to drink plenty of fluids. You may take the Flomax as prescribed. You may also use the medication for nausea and pain, as needed. If you are at work, and you need a nonnarcotic pain medication, you may use ibuprofen if you develop fevers, or are vomiting and unable to hold down even fluids, please return to the emergency department.
[2020-03-28 07:05] VITALS: BP 136/82
--- NOTE | 2020-03-28 08:32 | CT Report ---
PROCEDURE: Abdomen/Pelvis WO INDICATIONS: R flank pain TECHNIQUE: Noncontrast 5 mm thick sections acquired from the diaphragms to the symphysis. 5 mm coronal and sagi ttal reformats were then performed. For radiation dose reduction, the following was used: automated exposure control, adjustment of mA and/or kV according to patient size. COMPARISON: None. FINDINGS: Image quality: Excellent. ABDOMEN: Lung bases: Lung bases are clear. Heart size is normal. Solid organs: Liver and spleen are elongated. Gallbladder is unremarkable Pancreas is normal in co ntours. No adrenal nodules. There is moderate right hydronephrosis and proximal hydroureter. An irregular 8 mm stone is present i n the right proximal ureter at the level of the L4 vertebral body. Mild right perinephric stranding. Punctate upper and lower intrarenal calculi in the right kidney. Left kidney appears normal. Peritoneum and bowel: Antecolic Marce-en-Y gastric bypass changes. Moderate-sized hiatal hernia prese nt. Normal appendix. Mild descending colon diverticulosis. No free fluid or air. Nodes and vessels: No retroperitoneal or mesenteric adenopathy by size criteria. Aorta and inferior vena cava are normal in caliber. Miscellaneous: No ventral hernias. PELVIS: Genitourinary: Bladder wall thickness is normal. Normal size prostate gland. Miscellaneous: Small fat-containing right inguinal hernia.. Bones: No suspicious bony lesions. No vertebral body compression fractures. IMPRESSION: 1. 8 mm obstructing right proximal ureteral calculus. Moderate right hydronephrosis. 2. Punctate, nonobstructing upper and lower pole intrarenal calculi on the right. 3. Elongated liver and spleen, possibly physiologic for the patient. 4. Gastric bypass changes with moderate size hiatal hernia present. 5. Concordant with preliminary report. Reviewed by: Adriana Perry MD on 03/28/2020 8:31 AM PDT Approved by: Adriana Perry MD on 03/28/2020 8:31 AM PDT Station ID: [id number]
== END 2020-03-28 07:12 | disposition home or self-care (01) ==
LOC: ED 04:41
DX: N13.2 Hydronephrosis with renal and ureteral calculous obstruction (principal); I10 Essential (primary) hypertension
CPT/HCPCS: 36415; 74176; 81001; 81003; 87086; 96361; 96374; 96375; 99284

== ENCOUNTER 2021-07-21 15:05 | Emergency (ER) | payer MEDICAID ==
[2021-07-21] MEDS ORDERED: SODIUM CHLORIDE 0.9% 1,000 ML IV STA (16:14)
[2021-07-21] MEDS ORDERED: HYDROmorphone 1 MG/ML CARPUJECT IVP STA (16:14)
[2021-07-21] MEDS ORDERED: ONDANSETRON 4 MG/2 ML VIAL IVP STA (16:14)
--- NOTE | 2021-07-21 16:15 | ED Physician Documentation ---
PD HPI ABD PAIN - Stated complaint Stated Complaint: LETHARGY/FLANK PAIN - History obtained from History obtained from: Patient - Additional information Additional information: 45-year-old gentleman with history of gastric bypass in 2016 at [facility] and history of renal colic with very remote lithotripsy presents with 4 days of fatigue, soreness, left flank pain and dark urine. There is no dysuria. He has had some small clots or material he is not sure which in his urine. Review of Systems Ten Systems: 10 systems reviewed and negative Constitutional: denies: Fever, Chills Ears: reports: Reviewed and negative Nose: reports: Reviewed and negative Throat: reports: Reviewed and negative PD PAST MEDICAL HISTORY - Past Medical History Cardiovascular: Hypertension Respiratory: Sleep apnea, CPAP use Neuro: None Endocrine/Autoimmune: Other GI: GERD, Other : None, Kidney stones HEENT: None Psych: None Musculoskeletal: None Derm: None - Past Surgical History Past Surgical History: Yes General: Gastric surgery, Other - Present Medications Home Medications: Ambulatory Orders Medication Instructions Recorded Confirmed Propranolol [Inderal] 20 mg PO BID 04/17/13 07/21/21 Losartan [Cozaar] 50 mg PO DAILY 09/07/13 07/21/21 allopurinoL [Zyloprim] 100 mg PO BID 04/15/14 07/21/21 Venlafaxine [Effexor] 37.5 mg PO BID 02/02/17 07/21/21 oxyCODONE [Roxicodone] 5 - 10 mg PO Q6H PRN #14 tablet 02/13/20 07/21/21 Cefdinir 300 mg PO BID #20 cap 07/21/21 HYDROcod/ACETAM 5/325 [[place] 5/325] 1 - 2 tab PO Q6H PRN #15 tablet 07/21/21 - Allergies Allergies/Adverse Reactions: Allergies Allergy/AdvReac Type Severity Reaction Status Date / Time clarithromycin [From Biaxin] Allergy Severe Unknown Verified 07/21/21 16:31 lisinopril Allergy Mild Unknown Verified 07/21/21 16:31 Sulfa (Sulfonamide Allergy Unknown unknown Verified 07/21/21 16:31 Antibiotics) - Social History Does the pt smoke?: No Smoking Status: Never smoker Does the pt drink ETOH?: No Does the pt have substance abuse?: No - Immunizations Immunizations are current?: No Immunizations: TDAP >10years/unknown - POLST Patient has POLST: No PD ED PE NORMAL - Vitals Vital signs reviewed: Yes - General General: Alert and oriented X 3, Other (He appears well, has lost a lot of weight since the last time of seeing him. May be slightly pale.) - HEENT HEENT: PERRL, EOMI - Neck Neck: Supple, no meningeal sign, No bony TTP - Cardiac Cardiac: RRR, No murmur - Respiratory Respiratory: No respiratory distress, Clear bilaterally - Abdomen Abdomen: Normal bowel sounds, Soft, Non tender - Back Back: No CVA TTP - Derm Derm: Normal color, Warm and dry - Extremities Extremities: No edema, No calf tenderness / cord - Neuro Neuro: Alert and oriented X 3, Normal speech Results - Vitals Vitals: Vital Signs - 24 hr 07/21/21 07/21/21 15:50 17:15 Temperature 36.9 C Heart Rate 71 71 Respiratory 18 16 Rate Blood Pressure 136/76 H 125/72 O2 Saturation 99 99 Oxygen O2 Source Room air - Labs Labs: Laboratory Tests 07/21/21 07/21/21 07/21/21 14:16 16:28 16:28 WBC 8.7 RBC 4.46 L Hgb 12.7 L Hct 39.0 L MCV 87.4 MCH 28.5 MCHC 32.6 RDW 13.1 Plt Count 178 MPV 9.9 Neut # (Auto) 6.3 Lymph # (Auto) 1.4 L [place] # (Auto) 0.9 Eos # (Auto) 0.0 Baso # (Auto) 0.0 Absolute Nucleated RBC 0.00 Band Neuts % (Manual) Not Reportable Abnorm Lymph % (Manual) Not Reportable Nucleated RBC % 0.0 Neutrophils # (Manual) Not Reportable Lymphocytes # (Manual) Not Reportable Monocytes # (Manual) Not Reportable Eosinophils # (Manual) Not Reportable Basophils # (Manual) Not Reportable Differential Comment MANUAL=AUTO DIFF Manual Slide Review Indicated Platelet Estimate NORMAL (130-450,000) Platelet Morphology NORMAL APPEARANCE RBC Morph Micro Appear NORMAL APPEARANCE Sodium 135 Potassium 3.7 Chloride 97 L Carbon Dioxide 27 Anion Gap 11.0 BUN 14 Creatinine 0.9 Estimated GFR (MDRD) 90 Glucose 111 H Calcium 8.5 Total Bilirubin 0.9 AST 16 ALT 15 Alkaline Phosphatase 57 Total Protein 7.7 Albumin 3.3 Globulin 4.4 H Albumin/Globulin Ratio 0.8 L Urine Color DARK YELLOW Urine Clarity CLOUDY Urine pH 6.0 Ur Specific [place] 1.025 Urine Protein 100 H Urine Glucose (UA) NEGATIVE Urine Ketones NEGATIVE Urine Occult Blood LARGE H Urine Nitrite POSITIVE H Urine Bilirubin NEGATIVE Urine Urobilinogen 1 (NORMAL) Ur Leukocyte Esterase LARGE H Urine RBC 11-25 H Urine WBC >25 H Urine WBC Clumps PRESENT Ur Squamous Epith Cells RARE Squamous Urine Bacteria Many H Ur Microscopic Review INDICATED Urine Culture Comments INDICATED - Rads (name of study) CT KUB Radiology: EMP read contemporaneously, See rad report PD MEDICAL DECISION MAKING - ED course ED course: 85-year-old gentleman with history of renal colic presents with left flank pain, but the work-up here demonstrates pyelonephritis without any evidence of ureterolithiasis. All but pain-free after 1 mg of Dilaudid. 1 g of Rocephin IV here as well as home-going antibiotics and he was given signs and symptoms to watch out return for well as follow-up instructions. Departure - Departure Disposition: 01 Home, Self Care Clinical Impression: Pyelonephritis Condition: Good Record reviewed to determine appropriate education?: Yes Instructions: Pyelonephritis Dc Prescriptions: Cefdinir 300 mg PO BID #20 cap HYDROcod/ACETAM 5/325 [[place] 5/325] 1 - 2 tab PO Q6H PRN #15 tablet PRN Reason: Pain Comments: Blood work looks fairly normal, urinalysis positive for infection, CT showing a chronic stone on the right, but no stone on the left, but there is swelling of the left kidney and ureter and combined with your urine this is suggestive of a kidney infection also known as pyelonephritis. Prescription sent electronically to [facility] in [place]. We will culture your urine, the results should be done in 48-72 hours. If an antibiotic change is necessary we will call you. Return if worse in the meantime, especially if you develop increasing flank pain, fevers, or cannot keep down the medication. Follow-up with your doctor regardless. I am prescribing a short course of narcotic pain medication for you. These are potentially dangerous and addictive medications that should be used carefully. These medications may constipate you. Take an njxz-dfj-eupzufm stool softener (docusate) twice daily with plenty of water while taking these medications. If you go 24 hours without a bowel movement, take kxbo-yfy-mwcwskq miralax, per package instructions. Do not drink or drive while taking these medications. If you received narcotic or sedating medications while in the emergency department, do not drive for 24 hours. Store this medication in a safe, secure place and out of reach of children. It is a violation of federal law to give or sell this medication to another person or to use in a manner other than prescribed. The ED will not refill narcotic prescriptions, including prescriptions lost or stolen. To dispose of unwanted medications: 1. [facility] [address] in [place] has a medication drop box. They accept prescription medications (in pill form) Tuesday through Tuesday 9:00 a.m. to 5:00 p.m. 2. The [facility] accepts prescription medications (in pill form only) for disposal year round. Call for more information. 3. Contact the [facility] for the next COUNT INCLUDES THE [facility] sponsored prescription drug collection event. , [phone], or [phone]; Note that many narcotic pain relievers also contain Tylenol/acetaminophen. Please ensure that your total dose of acetaminophen from all sources does not exceed 3 g (3000 mg) per day. Discharge Date/Time: 07/21/21 18:02
[2021-07-21 16:35] LABS: EOSINOPHILS % (AUTO) 0.3 %; PLT - PLATELET COUNT 178 10^3/uL (130-450)
[2021-07-21 16:37] LABS: BASOPHILS % (AUTO) 0.3 %; HGB - HEMOGLOBIN 12.7 g/dL (14.0-18.0); LYMPHOCYTES # (AUTO) 1.4 10^3/uL (1.5-3.5); LYMPHOCYTES % (AUTO) 16.2 %; MEAN CORPUSCULAR HEMOGLOBIN 28.5 pg (27.0-31.0); MEAN CORPUSCULAR HGB CONC 32.6 g/dL (32.0-36.0); MEAN CORPUSCULAR VOLUME 87.4 fL (80.0-94.0); MEAN PLATELET VOLUME 9.9 fL (7.4-11.4); MONOCYTES # (AUTO) 0.9 10^3/uL (0.0-1.0); MONOCYTES % (AUTO) 10.3 %; NEUTROPHILS # (AUTO) 6.3 10^3/uL (1.5-6.6); NEUTROPHILS % (AUTO) 72.4 %; RED BLOOD COUNT 4.46 10^6/uL (4.70-6.10); RED CELL DISTRIBUTION WIDTH 13.1 % (12.0-15.0); WHITE BLOOD COUNT 8.7 x10^3/uL (4.8-10.8)
[2021-07-21 16:40] LABS: SLIDE REVIEW? Indicated
[2021-07-21 16:46] LABS: ALBUMIN 3.3 g/dL (3.2-5.5); ALBUMIN/GLOBULIN RATIO 0.8 (1.0-2.2); BILIRUBIN,TOTAL 0.9 mg/dL (0.2-1.0); CALCIUM 8.5 mg/dL (8.5-10.3); CREATININE 0.9 mg/dL (0.6-1.2); POTASSIUM 3.7 mmol/L (3.5-5.0); TOTAL PROTEIN 7.7 g/dL (6.7-8.2)
[2021-07-21 17:00] LABS: GLUCOSE, URINE (UA) NEGATIVE (NEGATIVE); KETONES,URINE (UA) NEGATIVE (NEGATIVE); LEUKOCYTE ESTERASE, URINE LARGE (NEGATIVE); NITRITE,URINE POSITIVE (NEGATIVE); OCCULT BLOOD,URINE LARGE (NEGATIVE); PROTEIN,URINE 100 mg/dL (NEGATIVE); UROBILINOGEN,URINE 1 (NORMAL) E.U./dL (NORMAL)
[2021-07-21 17:01] LABS: BILIRUBIN,URINE NEGATIVE (NEGATIVE); CLARITY,URINE CLOUDY (CLEAR); ICTOTEST,URINE NEGATIVE
[2021-07-21 17:02] LABS: BACTERIA,URINE Many /HPF (None Seen); SQUAMOUS EPITHELIAL CELL,UR RARE Squamous (<= Few); WBC CLUMPS,URINE PRESENT; WBC,URINE >25 /HPF (0-3)
[2021-07-21] MEDS ORDERED: cefTRIAXone 1 GM VIAL IVP STA (17:07)
[2021-07-21 17:15] VITALS: BP 125/72
[2021-07-21 17:16] LABS: PLATELET ESTIMATE, MANUAL NORMAL (130-450,000) (NORMAL); PLATELET MORPHOLOGY NORMAL APPEARANCE (NORMAL); RBC MORPHOLOGY (MULTIPLE) NORMAL APPEARANCE (NORMAL)
[2021-07-21 17:17] LABS: DIFFERENTIAL COMMENT MANUAL=AUTO DIFF
--- NOTE | 2021-07-21 17:21 | CT Report ---
PROCEDURE: Abdomen/Pelvis WO INDICATIONS: L flank pain TECHNIQUE: Noncontrast 5 mm thick sections acquired from the diaphragms to the symphysis. 5 mm coronal and sagi ttal reformats were then performed. For radiation dose reduction, the following was used: automated exposure control, adjustment of mA and/or kV according to patient size. COMPARISON: Correlation is made with prior abdomen and pelvis CT examinations, 03/28/2020 and 02/13/20. FINDINGS: Image quality: Excellent. ABDOMEN: Lung bases: Lung bases are clear. Heart size is normal. Solid organs: Liver and spleen are enlarged. The spleen measures 20 cm craniocaudal. Gallbladder wall does not appear thickened. Pancreas is normal in contours. No adrenal nodules. There is again seen an obstructing stone within the right proximal ureter, which measures up to 9 mm. There is mild right-sided hydroureter and hydronephrosis. No significant right-sided perinephric fat stranding can be seen. There is a 1 mm nonobstructing right-sided kidney stone. On the left, there is mild to moderate left-sided hydronephrosis with left-sided perinephric fat stra nding. No definite left-sided ureteral stones are seen. There is a nonobstructing 2 mm stone seen wit hin the left kidney. Peritoneum and bowel: Gastric bypass surgery is seen. A portion of the gastric pouch is seen containe d within a hiatal hernia. Unenhanced bowel loops demonstrate normal wall thickness and caliber. No f ree fluid or air. Nodes and vessels: No retroperitoneal or mesenteric adenopathy by size criteria. Aorta and inferior vena cava are normal in caliber. Miscellaneous: No ventral hernias. PELVIS: Genitourinary: Bladder wall thickness is normal. Miscellaneous: No inguinal adenopathy. Bilateral inguinal hernias are seen, right larger than left. Bones: No suspicious bony lesions. No vertebral body compression fractures. Generalized bony degene rative changes are seen. IMPRESSION: On the left, there is hydronephrosis, hydroureter and perinephric fat is seen. However, no obstructin g stone can be seen. Please consider a recently passed stone. Chronic 9 mm obstructing stone within the right proximal ureter. Small nonobstructing bilateral renal stones are seen. Gastric bypass surgery change, with a portion of the gastric pouch within a hiatal hernia, as before. Incidental note is made of: Hepatosplenomegaly Fat-containing bilateral inguinal hernias. Reviewed by: Abdirashid Gomez MD on 07/21/2021 4:20 PM [facility] Approved by: Abdirashid Gomez MD on 07/21/2021 4:20 PM [facility] Station ID: [id number]
== END 2021-07-21 18:02 | disposition home or self-care (01) ==
LOC: ED 15:05
DX: N12 Tubulo-interstitial nephritis, not specified as acute or chronic (principal)
CPT/HCPCS: 36415; 74176; 80053; 81001; 85025; 87086; 87181; 96361; 96374; 96375; 99283; 99284; J1170; 81003

== ENCOUNTER 2021-08-19 08:00 | Outpatient (CLI) | payer MEDICAID ==
[2021-08-19 17:55] LABS: BASOPHILS % (AUTO) 0.3 %; EOSINOPHILS # (AUTO) 0.1 10^3/uL (0.0-0.7); HCT - HEMATOCRIT 29.6 % (42.0-52.0); HGB - HEMOGLOBIN 9.3 g/dL (14.0-18.0); LYMPHOCYTES # (AUTO) 1.4 10^3/uL (1.5-3.5); LYMPHOCYTES % (AUTO) 11.4 %; MEAN CORPUSCULAR HEMOGLOBIN 27.1 pg (27.0-31.0); MEAN CORPUSCULAR HGB CONC 31.4 g/dL (32.0-36.0); MEAN CORPUSCULAR VOLUME 86.3 fL (80.0-94.0); MEAN PLATELET VOLUME 9.5 fL (7.4-11.4); MONOCYTES % (AUTO) 7.8 %; NEUTROPHILS # (AUTO) 9.8 10^3/uL (1.5-6.6); NEUTROPHILS % (AUTO) 78.7 %; PLT - PLATELET COUNT 324 10^3/uL (130-450); RED BLOOD COUNT 3.43 10^6/uL (4.70-6.10); RED CELL DISTRIBUTION WIDTH 12.9 % (12.0-15.0); WHITE BLOOD COUNT 12.4 x10^3/uL (4.8-10.8)
[2021-08-19 18:09] LABS: ALBUMIN 2.4 g/dL (3.2-5.5); ALBUMIN/GLOBULIN RATIO 0.5 (1.0-2.2); BILIRUBIN,TOTAL 0.8 mg/dL (0.2-1.0); CALCIUM 8.3 mg/dL (8.5-10.3); CREATININE 0.8 mg/dL (0.6-1.2); TOTAL PROTEIN 7.1 g/dL (6.7-8.2)
== END 2021-08-19 23:59 | disposition home or self-care (01) ==
LOC: LAB.WCP 08:00
PROVIDERS: ATTEND Family Medicine
DX: N12 Tubulo-interstitial nephritis, not specified as acute or chronic (principal)
CPT/HCPCS: 36415; 80053; 84550; 85025; 87077; 87086; 87181

== ENCOUNTER 2022-01-08 23:56 | Outpatient (CLI) | payer MEDICAID | END 2022-01-08 23:57 | disposition short-term general hospital (02) | LOC: EMS 23:56 | DX: R10.32 Left lower quadrant pain (principal); M54.50 Low back pain, unspecified | CPT/HCPCS: A0425; A0427; A0999 ==

== ENCOUNTER 2022-01-09 14:30 | Outpatient (CLI) | payer MEDICAID | END 2022-01-09 14:31 | disposition critical access hospital (66) | LOC: EMS 14:30 | DX: R10.32 Left lower quadrant pain (principal); R11.10 Vomiting, unspecified; R10.817 Generalized abdominal tenderness | CPT/HCPCS: A0425; A0427; A0999 ==

== ENCOUNTER 2022-01-09 14:50 | Emergency (ER) | payer MEDICAID ==
[2022-01-09] MEDS ORDERED: LIDOCAINE VISCOUS 2% 15 ML UDC MM STA (14:56)
[2022-01-09] MEDS ORDERED: MAG HYDROX/AL HYDROX/SIMETH 30 ML UDC PO STA (14:56)
--- NOTE | 2022-01-09 14:57 | ED Physician Documentation ---
PD HPI ABD PAIN - Stated complaint Stated Complaint: ABD PX - History obtained from History obtained from: Patient - Additional information Additional information: 46-year-old gentleman with history of remote gastric bypass developed left upper quadrant pain associated with emesis starting around 9:00 last night. He was seen at [facility] where he had an IV contrast-enhanced CT which per his report showed a chronic right sided ureterolith which has been present on prior scans here and a left inguinal hernia. He said he had microscopic hematuria but no gross hematuria on testing. Pain is persistent. No bowel movement yet toda y. No fevers. No shortness of breath. He is not on a PPI. Review of Systems Ten Systems: 10 systems reviewed and negative Constitutional: reports: Sweats. denies: Fever, Chills Cardiac: denies: Chest pain / pressure, Palpitations Respiratory: denies: Dyspnea, Cough PD PAST MEDICAL HISTORY - Past Medical History Cardiovascular: Hypertension Respiratory: Sleep apnea, CPAP use Neuro: None Endocrine/Autoimmune: Other GI: GERD, Other : None, Kidney stones HEENT: None Psych: None Musculoskeletal: None Derm: None - Past Surgical History Past Surgical History: Yes General: Gastric surgery, Other - Present Medications Home Medications: Ambulatory Orders Medication Instructions Recorded Confirmed Propranolol [Inderal] 20 mg PO BID 04/17/13 01/09/22 Losartan [Cozaar] 50 mg PO DAILY 09/07/13 01/09/22 allopurinoL [Zyloprim] 100 mg PO BID 04/15/14 01/09/22 Venlafaxine [Effexor] 37.5 mg PO BID 02/02/17 01/09/22 HYDROcod/ACETAM 5/325 [[place] 5/325] 1 - 2 tab PO Q6H PRN #15 tablet 01/09/22 Omeprazole 40 mg PO BID #60 cap 01/09/22 Ondansetron Odt [Zofran] 4 mg TL Q6H PRN #10 tablet 01/09/22 Sucralfate [Carafate] 1 gm PO ACHS #120 tablet 01/09/22 - Allergies Allergies/Adverse Reactions: Allergies Allergy/AdvReac Type Severity Reaction Status Date / Time clarithromycin [From Biaxin] Allergy Severe Unknown Verified 01/09/22 15:15 lisinopril Allergy Mild Unknown Verified 01/09/22 15:15 Sulfa (Sulfonamide Allergy Unknown unknown Verified 01/09/22 15:15 Antibiotics) - Social History Does the pt smoke?: No Smoking Status: Never smoker Does the pt drink ETOH?: No Does the pt have substance abuse?: No - Immunizations Immunizations are current?: No Immunizations: TDAP >10years/unknown - POLST Patient has POLST: No PD ED PE NORMAL - Vitals Vital signs reviewed: Yes - General General: Alert and oriented X 3, No acute distress - HEENT HEENT: PERRL, EOMI - Neck Neck: Supple, no meningeal sign, No bony TTP - Cardiac Cardiac: RRR, No murmur - Respiratory Respiratory: No respiratory distress, Clear bilaterally - Abdomen Abdomen: Normal bowel sounds, Soft, Non tender, Other (No obvious hernia mass, nontender in the left inguinal area.) - Back Back: No CVA TTP, No spinal TTP - Derm Derm: Normal color, Warm and dry - Extremities Extremities: No edema, No calf tenderness / cord - Neuro Neuro: Alert and oriented X 3, Normal speech Results - Vitals Vitals: Vital Signs - 24 hr 01/09/22 01/09/22 14:56 16:08 Temperature 36.5 C Heart Rate 60 71 Respiratory 20 16 Rate Blood Pressure 160/109 H 156/110 H O2 Saturation 98 98 Oxygen O2 Source Room air - Labs Labs: Laboratory Tests 01/09/22 01/09/22 15:20 15:20 WBC 13.0 H RBC 5.20 Hgb 14.5 Hct 43.5 MCV 83.7 MCH 27.9 MCHC 33.3 RDW 13.9 Plt Count 210 MPV 9.5 Neut # (Auto) 11.2 H Lymph # (Auto) 1.1 L [place] # (Auto) 0.6 Eos # (Auto) 0.1 Baso # (Auto) 0.0 Absolute Nucleated RBC 0.00 Nucleated RBC % 0.0 Sodium 138 Potassium 3.9 Chloride 101 Carbon Dioxide 26 Anion Gap 11.0 BUN 13 Creatinine 0.9 Estimated GFR (MDRD) 90 Glucose 136 H Calcium 9.7 Total Bilirubin 1.0 AST 21 ALT 22 Alkaline Phosphatase 64 Total Protein 8.3 H Albumin 4.3 Globulin 4.0 Albumin/Globulin Ratio 1.1 Lipase 29 PD MEDICAL DECISION MAKING - ED course ED course: Records from [facility] reviewed. Lab work normal yesterday. He actually only had trace blood in the urine with no red cells. CT showing a distal right ureteral stone and the left inguinal hernia with bowel in it. Neither of these would explain his pain, the pain is on the left but in the upper quadrant and his inguinal area is nontender with no palpable mass. He has no clinical evidence of obstruction and his exam is very benign. Given his history of gastric bypass, I suspect he probably has ulcers or erosions. He does have a history of that as well as needing dilation endoscopically. Not sure why he is not on a PPI. Departure - Departure Disposition: Home, Self Care Clinical Impression: Abdominal pain Qualifiers: Abdominal location: left upper quadrant Qualified Code(s): R10.12 - Left upper quadrant pain Condition: Good Record reviewed to determine appropriate education?: Yes Instructions: ED Abdominal Pain Unkn Cause Male Prescriptions: Sucralfate [Carafate] 1 gm PO ACHS #120 tablet HYDROcod/ACETAM 5/325 [[place] 5/325] 1 - 2 tab PO Q6H PRN #15 tablet PRN Reason: Pain Omeprazole 40 mg PO BID #60 cap Ondansetron Odt [Zofran] 4 mg TL Q6H PRN #10 tablet PRN Reason: Nausea / Vomiting Comments: As discussed, although the CT from yesterday identified a left inguinal hernia and the right-sided kidney stone, given the location of your pain in the left upper quadrant and your history of a Marce-en-Y gastric bypass, my suspicion is that it is more likely that your pain is either due to stomal stenosis which you have had before or marginal ulcer. It is very reasonable to follow-up with your bariatric surgeon for evaluation and consideration for upper endoscopy since its been about a year and a half since your last. In the meantime I am starting her on some pain and nausea medicine, but also a high-dose proton pump inhibitor, omeprazole and Carafate. Remember that Carafate has to be taken at least an hour apart from your other medications as we discussed. Call your bariatric surgeon on Tuesday. Also your urologist on Tuesday. Return for new or worsening symptoms. I sent prescriptions electronically to [facility] in [place] I am prescribing a short course of narcotic pain medication for you. These are potentially dangerous and addictive medications that should be used carefully. These medications may constipate you. Take an rtou-fhk-xfdgbbr stool softener (docusate) twice daily with plenty of water while taking these medications. If you go 24 hours without a bowel movement, take tati-zsw-xwynwql miralax, per package instructions. Do not drink or drive while taking these medications. If you received narcotic or sedating medications while in the emergency department, do not drive for 24 hours. Store this medication in a safe, secure place and out of reach of children. It is a violation of federal law to give or sell this medication to another person or to use in a manner other than prescribed. The ED will not refill narcotic prescriptions, including prescriptions lost or stolen. To dispose of unwanted medications: 1. [facility] [address] in [place] has a medication drop box. They accept prescription medications (in pill form) Tuesday through Tuesday 9:00 a.m. to 5:00 p.m. 2. The [facility] [place] [employer] Department accepts prescription medications (in pill form only) for disposal year round. Call for more information. 3. Contact the [facility] for the next [facility] sponsored prescription drug collection event. , [phone], or [phone]; Note that many narcotic pain relievers also contain Tylenol/acetaminophen. Please ensure that your total dose of acetaminophen from all sources does not exceed 3 g (3000 mg) per day. Forms: Activity restrictions
--- OUTSIDE RECORDS SUMMARY | 2022-01-09 15:04 | EXTERNAL MEDICAL SUMMARY RPT | Continuity of Care Document ---
:1975 Author Organization [facility] Address [address] [place] [address] Phone Care Team Providers Name Role Phone Troy Unavailable Unavailable Allergies No information. Encounters No information. Medications No information. Problems Procedures date description facility [id number] [facility] Results No information. Vital Signs date measurement value source [id number] weight_standard 135.62 lb [id number] weight_metric 61.52 kg [id number] respiration_rate 18 /min [id number] height_standard 67 in [id number] height_metric 170.18 cm [id number] heart_rate 75 /min [id number] BP_systolic 159 mm[Hg] 20220109 BP_diastolic 93 mm[Hg] 20220109 BMI 46.8 kg/m2
[2022-01-09 15:25] LABS: BASOPHILS % (AUTO) 0.2 %; EOSINOPHILS # (AUTO) 0.1 10^3/uL (0.0-0.7); EOSINOPHILS % (AUTO) 0.8 %; HCT - HEMATOCRIT 43.5 % (42.0-52.0); HGB - HEMOGLOBIN 14.5 g/dL (14.0-18.0); LYMPHOCYTES # (AUTO) 1.1 10^3/uL (1.5-3.5); LYMPHOCYTES % (AUTO) 8.3 %; MEAN CORPUSCULAR HEMOGLOBIN 27.9 pg (27.0-31.0); MEAN CORPUSCULAR HGB CONC 33.3 g/dL (32.0-36.0); MEAN CORPUSCULAR VOLUME 83.7 fL (80.0-94.0); MEAN PLATELET VOLUME 9.5 fL (7.4-11.4); MONOCYTES # (AUTO) 0.6 10^3/uL (0.0-1.0); MONOCYTES % (AUTO) 4.4 %; NEUTROPHILS # (AUTO) 11.2 10^3/uL (1.5-6.6); NEUTROPHILS % (AUTO) 86.1 %; PLT - PLATELET COUNT 210 10^3/uL (130-450); RED CELL DISTRIBUTION WIDTH 13.9 % (12.0-15.0)
[2022-01-09] MEDS ORDERED: HYDROmorphone 1 MG/ML CARPUJECT IVP STA (15:31)
[2022-01-09] MEDS ORDERED: PANTOPRAZOLE 40 MG VIAL IVP STA (15:31)
[2022-01-09 15:40] LABS: ALBUMIN 4.3 g/dL (3.2-5.5); ALBUMIN/GLOBULIN RATIO 1.1 (1.0-2.2); CALCIUM 9.7 mg/dL (8.5-10.3); CREATININE 0.9 mg/dL (0.6-1.2); POTASSIUM 3.9 mmol/L (3.5-5.0); TOTAL PROTEIN 8.3 g/dL (6.7-8.2)
[2022-01-09] MEDS ORDERED: MORPHINE 2 MG/ML CARPUJECT IVP STA (15:58)
[2022-01-09] MEDS ORDERED: METOCLOPRAMIDE 10 MG/2 ML VIAL IVP STA (15:58)
[2022-01-09 16:09] VITALS: BP 156/110
== END 2022-01-09 17:01 | disposition home or self-care (01) ==
LOC: EDUNIT# → ED 14:50
DX: R10.12 Left upper quadrant pain (principal); I10 Essential (primary) hypertension; Z98.84 Bariatric surgery status
CPT/HCPCS: 36415; 80053; 83690; 85025; 96374; 96375; 99284; 99285; A9270; J1170; J2765

== ENCOUNTER 2022-01-17 02:23 | Outpatient (CLI) | payer MEDICAID | END 2022-01-17 02:24 | disposition short-term general hospital (02) | LOC: EMS 02:23 | DX: T81.31XA Disruption of external operation (surgical) wound, not elsewhere classified, initial encounter (principal) | CPT/HCPCS: A0425; A0429; A0999 ==

== ENCOUNTER 2022-09-19 14:04 | Emergency (ER) | payer MEDICAID ==
[2022-09-19 14:11] VITALS: BP 152/97
[2022-09-19] MEDS ORDERED: VENLAFAXINE 37.5 MG TABLET PO STA (14:20)
--- NOTE | 2022-09-19 14:24 | ED Physician Documentation ---
History of Present Illness - Stated complaint Stated Complaint: FATIGUE - Chief complaint Chief Complaint: General - History obtained from History obtained from: Patient - Additonal information Additional information: He is post to be on venlafaxine 37.5 mg twice a day. Due to a clerical error his last prescription was only for once a day and therefore he ran out early as he was taking it twice a day. Last dose was about 5 days ago and for the last day or 2 has been feeling lightning zaps in his head and disoriented. There is no SI or HI. Review of Systems Psychiatric: denies: Suicidal, Homicidal, Hallucinations PD PAST MEDICAL HISTORY - Past Medical History Past Medical History: Yes Cardiovascular: Hypertension Respiratory: Sleep apnea, CPAP use Neuro: None Endocrine/Autoimmune: Other GI: GERD, Hiatal hernia, Other : Kidney stones HEENT: None Psych: Depression, Anxiety, Panic attacks Musculoskeletal: None Derm: None - Past Surgical History Past Surgical History: Yes General: Gastric surgery, Other - Present Medications Home Medications: Ambulatory Orders Medication Instructions Recorded Confirmed Propranolol [Inderal] 20 mg PO BID 04/17/13 09/19/22 Losartan [Cozaar] 50 mg PO DAILY 09/07/13 09/19/22 allopurinoL [Zyloprim] 100 mg PO BID 04/15/14 09/19/22 Venlafaxine [Effexor] 37.5 mg PO BID 02/02/17 09/19/22 Ondansetron Odt [Zofran] 4 mg TL Q6H PRN #10 tablet 01/09/22 09/19/22 Venlafaxine [Effexor] 37.5 mg PO BID #60 tablet 09/19/22 - Allergies Allergies/Adverse Reactions: Allergies Allergy/AdvReac Type Severity Reaction Status Date / Time clarithromycin [From Biaxin] Allergy Severe Unknown Verified 09/19/22 14:07 lisinopril Allergy Mild Unknown Verified 09/19/22 14:07 Sulfa (Sulfonamide Allergy Unknown unknown Verified 09/19/22 14:07 Antibiotics) - Social History Does the pt smoke?: No Smoking Status: Never smoker Does the pt drink ETOH?: No Does the pt have substance abuse?: Yes Substance Use and Type: Marijuana - Immunizations Immunizations are current?: Yes Immunizations: TDAP >10years/unknown - POLST Patient has POLST: No PD ED PE NORMAL - Vitals Vital signs reviewed: Yes - General General: Alert and oriented X 3, No acute distress, Well developed/nourished - Neuro Neuro: Alert and oriented X 3, Normal speech - Psych Psych: Normal mood, Normal affect Results - Vitals Vitals: Vital Signs - 24 hr 09/19/22 14:07 Temperature 36.3 C L Heart Rate 66 Respiratory 18 Rate Blood Pressure 152/97 H O2 Saturation 100 Oxygen O2 Source Room air PD Medical Decision Making - ED course ED course: 47-year-old gentleman ran out of his venlafaxine early due to a problem with the prescription and this is refilled after a dose here. Departure - Departure Disposition: 01 Home, Self Care Clinical Impression: Medication withdrawal, On SSRI therapy Condition: Good Record reviewed to determine appropriate education?: Yes Instructions: SSRIs Prescriptions: Venlafaxine [Effexor] 37.5 mg PO BID #60 tablet Comments: I sent your prescription electronically to [facility] in [place]. Return for new or worsening symptoms. Follow-up with your prescriber for your next refill.
== END 2022-09-19 14:29 | disposition home or self-care (01) ==
LOC: ED 14:04
DX: F15.23 Other stimulant dependence with withdrawal (principal); R44.8 Other symptoms and signs involving general sensations and perceptions; T43.216A Underdosing of selective serotonin and norepinephrine reuptake inhibitors, initial encounter; Z91.138 Patient's unintentional underdosing of medication regimen for other reason
CPT/HCPCS: 99282; 99283; A9270

== ENCOUNTER 2022-12-24 10:28 | Outpatient (CLI) | payer MEDICAID ==
[2022-12-24 12:33] LABS: BASOPHILS # (AUTO) 0.1 10^3/uL (0.0-0.1); BASOPHILS % (AUTO) 0.6 %; EOSINOPHILS # (AUTO) 0.3 10^3/uL (0.0-0.7); EOSINOPHILS % (AUTO) 3.5 %; HGB - HEMOGLOBIN 13.2 g/dL (14.0-18.0); LYMPHOCYTES # (AUTO) 2.5 10^3/uL (1.5-3.5); LYMPHOCYTES % (AUTO) 30.7 %; MEAN CORPUSCULAR HEMOGLOBIN 28.3 pg (27.0-31.0); MEAN CORPUSCULAR HGB CONC 32.2 g/dL (32.0-36.0); MEAN CORPUSCULAR VOLUME 87.8 fL (80.0-94.0); MEAN PLATELET VOLUME 10.2 fL (7.4-11.4); MONOCYTES # (AUTO) 0.4 10^3/uL (0.0-1.0); MONOCYTES % (AUTO) 5.2 %; NEUTROPHILS # (AUTO) 4.9 10^3/uL (1.5-6.6); NEUTROPHILS % (AUTO) 59.8 %; PLT - PLATELET COUNT 210 10^3/uL (130-450); RED BLOOD COUNT 4.67 10^6/uL (4.70-6.10); WHITE BLOOD COUNT 8.3 x10^3/uL (4.8-10.8)
[2022-12-24 18:02] LABS: CREATININE,URINE 197.8 mg/dL; MICROALBUM/CREATININE RATIO,UR 4.6 ug/mg (<30.0); MICROALBUMIN,URINE 0.9 mg/dL (0-300.0)
[2022-12-24 18:13] LABS: % IRON SATURATION 22 % (20-50); ALBUMIN 3.9 g/dL (3.2-5.5); ALKALINE PHOSPHATASE 61 IU/L (42-121); ALT ALANINE AMINOTRANSFERASE 15 IU/L (10-60); AST ASPARTATE AMINOTRANSFERASE 18 IU/L (10-42); BILIRUBIN,TOTAL 0.7 mg/dL (0.2-1.0); BUN - BLOOD UREA NITROGEN 10 mg/dL (6-20); CALCIUM 8.7 mg/dL (8.5-10.3); CARBON DIOXIDE - CO2 26 mmol/L (21-32); CHLORIDE 100 mmol/L (101-111); CHOL/HDL RATIO 2.3 (<5.0); CHOLESTEROL 155 mg/dL; CREATININE 0.7 mg/dL (0.6-1.2); GFR - MDRD 120 (>89); GLUCOSE 92 mg/dL (70-100); HDL CHOLESTEROL 66 mg/dL; IRON 78 ug/dL (45-182); LDL CHOLESTEROL,CALCULATED 73 mg/dL; LDL/HDL RATIO 1.1 (<3.6); POTASSIUM 4.3 mmol/L (3.5-5.0); SODIUM 135 mmol/L (135-145); TOTAL IRON BINDING CAPACITY 347 ug/dL (250-450); TOTAL PROTEIN 7.8 g/dL (6.7-8.2); TRANSFERRIN 248 mg/dL (180-329); TRIGLYCERIDES 80 mg/dL; URIC ACID 4.4 mg/dL (2.6-7.2); VLDL CHOLESTEROL 16 mg/dL
[2022-12-24 18:21] LABS: THYROID STIMULATING HORMONE 1.38 uIU/mL (0.34-5.60)
[2022-12-24 21:46] LABS: ESTIMATED AVERAGE GLUCOSE 94 mg/dL (70-100); HEMOGLOBIN A1c% 4.9 % (4.27-6.07)
== END 2022-12-24 10:29 | disposition home or self-care (01) ==
LOC: LAB.N 10:28
PROVIDERS: ATTEND Internal Medicine
DX: I10 Essential (primary) hypertension (principal); Z13.220 Encounter for screening for lipoid disorders; Z98.0 Intestinal bypass and anastomosis status; E88.81 Metabolic syndrome and other insulin resistance; F41.8 Other specified anxiety disorders; M10.9 Gout, unspecified
CPT/HCPCS: 36415; 80050; 80061; 82043; 82306; 82570; 82728; 83036; 83540; 83721; 84466; 84550

== ENCOUNTER 2023-02-05 17:58 | Outpatient (CLI) | payer MEDICAID | END 2023-02-05 23:59 | disposition EMS.NT | LOC: EMS 17:58 | DX: R41.0 Disorientation, unspecified (principal); R45.1 Restlessness and agitation ==

== ENCOUNTER 2023-02-18 22:56 | Emergency (ER) | payer MEDICAID ==
--- NOTE | 2023-02-19 01:38 | ED Physician Documentation ---
PD HPI HEENT - Stated complaint Stated Complaint: L TOOTH PX - Chief complaint Chief Complaint: Heent - History obtained from History obtained from: Patient - Additional information Additional information: HPI from patient. Patient c/o 1-2 days of left upper dental pain, not noticeably related to a pa rticular tooth. Pain was of gradual onset and without inciting event such as injury, gradually worsening and becoming associated with increasing swelling of the left side of the face since this morning. Denies h/o similar symptoms, denies fever Review of Systems Constitutional: denies: Fever Throat: reports: Dental pain / toothache PD PAST MEDICAL HISTORY - Past Medical History Cardiovascular: Hypertension Respiratory: Sleep apnea, CPAP use Neuro: None Endocrine/Autoimmune: Other GI: GERD, Hiatal hernia, Other : Kidney stones HEENT: None Psych: Depression, Anxiety, Panic attacks Musculoskeletal: None Derm: None - Past Surgical History Past Surgical History: Yes General: Gastric surgery, Other - Present Medications Home Medications: Ambulatory Orders Medication Instructions Recorded Confirmed Propranolol [Inderal] 20 mg PO BID 04/17/13 09/19/22 Losartan [Cozaar] 50 mg PO DAILY 09/07/13 09/19/22 allopurinoL [Zyloprim] 100 mg PO BID 04/15/14 09/19/22 Venlafaxine [Effexor] 37.5 mg PO BID 02/02/17 09/19/22 Ondansetron Odt [Zofran] 4 mg TL Q6H PRN #10 tablet 01/09/22 09/19/22 Venlafaxine [Effexor] 37.5 mg PO BID #60 tablet 09/19/22 HYDROcod/ACETAM 5/325 [[place] 5/325] 1 - 2 tablet PO Q6H PRN #14 tablet 02/19/23 clindamycin HCL [Clindamycin HCl] 300 mg PO QID #28 cap 02/19/23 - Allergies Allergies/Adverse Reactions: Allergies Allergy/AdvReac Type Severity Reaction Status Date / Time clarithromycin [From Biaxin] Allergy Severe Unknown Verified 09/19/22 14:07 lisinopril Allergy Mild Unknown Verified 09/19/22 14:07 Sulfa (Sulfonamide Allergy Unknown unknown Verified 09/19/22 14:07 Antibiotics) - Social History Does the pt smoke?: No Smoking Status: Never smoker Does the pt drink ETOH?: No Does the pt have substance abuse?: Yes - Immunizations Immunizations are current?: Yes Immunizations: TDAP >10years/unknown - POLST Patient has POLST: No PD ED PE NORMAL - Vitals Vital signs reviewed: Yes - General General: Alert and oriented X 3, No acute distress, Well developed/nourished - HEENT HEENT: Moist mucous membranes PD ED PE EXPANDED - HEENT HEENT: Dental decay (overall poor dentition with extensive decay and attrition. no gingival erythema, swelling, fluctuance. ) HEENT Visual: 1 - swelling (nontender swelling without fluctuance or palpable margins to suggest abscess) Results - Vitals Vitals: Oxygen O2 Source Room air PD Medical Decision Making - ED course Complexity details: considered differential, d/w patient ED course: suspect dental infection with surrounding inflammation and swelling but no visible nor palpable abscess at this time. Given 1gm IM roephin and 300mg PO clidamycin, take-home pack of vicodin, and prescribed both vicodin and clindamycin. Return precautions discussed, advised to follow up with dentist, next available appointment. Departure - Departure Disposition: 01 Home, Self Care Clinical Impression: Dental infection Condition: Good Instructions: ED Tooth Pain Prescriptions: clindamycin HCL [Clindamycin HCl] 300 mg PO QID #28 cap HYDROcod/ACETAM 5/325 [[place] 5/325] 1 - 2 tablet PO Q6H PRN #14 tablet PRN Reason: Pain Comments: You were given two different antibiotics in the emergency department tonight. You were given a shot/injection of ceftriaxone as well as an oral dose of clindamycin. You were also given a pain medication (Vicodin). I have electronically submitted prescriptions for the pain medication (Vicodin) and the clindamycin (antibiotic) to the [facility] pharmacy in [place]. Contact your dentist soon as the office is open to arrange for next available appointment for reevaluation. I am prescribing a short course of narcotic pain medication for you. These are potentially dangerous and addictive medications that should be used carefully. These medications may constipate you. Take an [id number] stool softener (docusate) twice daily with plenty of water while taking these medications. If you go 24 hours without a bowel movement, take [id number] miralax, per package instructions. Do not drink or drive while taking these medications. If you received narcotic or sedating medications while in the emergency department, do not drive for 24 hours. Store this medication in a safe, secure place and out of reach of children. It is a violation of federal law to give or sell this medication to another person or to use in a manner other than prescribed. The ED will not refill narcotic prescriptions, including prescriptions lost or stolen. To dispose of unwanted medications: 1. [facility] [address] in [place] has a medication drop box. They accept prescription medications (in pill form) Tuesday through Tuesday 9:00 a.m. to 5:00 p.m. 2. [facility] accepts prescription medications (in pill form only) for disposal year round. Call for more information. 3. Contact the [facility] for the next [facility] sponsored prescription drug collection event. , [phone], or [phone]; Discharge Date/Time: 02/19/23 02:31
[2023-02-19] MEDS ORDERED: LIDOCAINE 1% 2 ML VIAL MC ONE (02:10)
[2023-02-19] MEDS ORDERED: cefTRIAXone 1 GM VIAL IM STA (02:10)
[2023-02-19] MEDS ORDERED: CLINDAMYCIN 150 MG CAPSULE PO STA (02:10)
[2023-02-19] MEDS ORDERED: HYDROcod/ACETAM 5/325 MG TABLET PO STA (02:11)
[2023-02-19 02:34] VITALS: BP 133/76
== END 2023-02-19 02:31 | disposition home or self-care (01) ==
LOC: ED 22:56
DX: K08.9 Disorder of teeth and supporting structures, unspecified (principal); I10 Essential (primary) hypertension; Z79.899 Other long term (current) drug therapy
CPT/HCPCS: 96372; 99283; A9270